=== PATIENT | female | born 1970 | race Two or more races ===

== ENCOUNTER 2024-04-24 14:53 | Inpatient (IN) | payer BC, OTHER ==
[~2024-04-24] VITALS: Ht 160 cm; Wt 120.9 kg
[2024-04-24 15:24] VITALS: BP 147/100; PULSE 78; RESP 20; O2SAT 99
--- NOTE | 2024-04-24 15:35 | ED.PDOC ---
History of Present Illness HPI Comments 53 y/o F,Hx of hypothyroidism and 3xC-sections and a FMHx of COPD, DM, and hypoglycemia, presents from [facility] facility with c/o abdominal and back pain and nausea, today. Patient endorses on Hx of similar symptoms following self-purchased semaglutide injections she has been taking for the past 7x weeks, with most recent onset taking place within the last 2x days, following recent increasing in medication dosage from 10 units to 20 units. She comments on pain being a 7/10 in severity and localized in her epigastric region prior to then radiating, directly, towards her mid-back. She also comments on having 1x isolated episode of loose stools and chills that resoled on its own during initial onset of symptoms. Patient reports no further relevant or pertinent Hx, such as recent injuries, travel, or sick contact. She denies having any vomiting, diarrhea, constipation, urinary symptoms, fever, or other associated symptoms or modifiers at this time. Time Seen by MD: 15:20 Reviewed Notes: Nurses Notes, Medications, Allergies Allergies: Coded Allergies: Nitrofurantoin (Verified Allergy, Unknown, 04/24/24) Penicillins (Verified Allergy, Unknown, 04/24/24) Information Source: Patient Mode of Arrival: Ambulatory Severity: Moderate Timing: Days Duration: Since onset Prehospital treatment: None Past Medical History PAST MEDICAL HISTORY: Thyroid (hypothyroidism ) Past Medical History (Other): morbid obesity Surgical History: (3x), Tonsillectomy Surgical History (Other): right foot foreign body removal WATCH PARTS GRINDER History: Denies all WATCH PARTS GRINDER Hx Family History Family History: Reviewed,noncontributory to illness, No family hx of Cancer, No family hx of Heart alisia, No family hx of HTN, No family hx ofKidney alisia, No family hx of Liver alisia, No family hx of Stroke, Family hx of DM, Family hx of lung alisia (COPD) Family History (Other): hypoglycemia Social History Smoker: Non-Smoker Alcohol: Occasionally Drugs: Denies Drug Use Lives In: Home Constitutional: denies: chills, diaphoresis, fatigue, fever, malaise, sweats, weakness, others EENTM: denies: blurred vision, double vision, ear bleeding, ear discharge, ear drainage, ear pain, ear ringing, eye pain, eye redness, hearing loss, mouth pain, mouth swelling, nasal discharge, nose bleeding, nose congestion, nose pain, photophobia, tearing, throat pain, throat swelling, voice changes, others Respiratory: denies: cough, hemoptysis, orthopnea, SOB at rest, shortness of breath, SOB with excertion, stridor, wheezing, others Cardiovascular: denies: chest pain, dizzy spells, diaphoresis, Dyspnea on exertion, edema, irregular heart beat, left arm pain, lightheadedness, palpitations, PND, syncope, others Gastrointestinal: reports: abdominal pain, nausea; denies: abdomen distended, blood streaked bowels, constipated, diarrhea, dysphagia, difficulty swallowing, hematemesis, melena, poor appetite, poor fluid intake, rectal bleeding, rectal pain, vomiting, others Genitourinary: denies: abnormal vagina bleeding, burning, dyspareunia, dysuria, flank pain, frequency, hematuria, incontinence, pain, , vagina discharge, urgency, others Neurological: denies: dizziness, fainting, headache, left sided numbness, left sided weakness, numbness, paresthesia, pre-existing deficit, right sided numbness, right sided weakness, seizure, speech problems, tingling, tremors, weakness, others Musculoskeletal: reports: back pain; denies: gout, joint pain, joint swelling, muscle pain, muscle stiffness, neck pain, others Integumetry: denies: bruises, change in color, change in hair/nails, dryness, laceration, lesions, lumps, rash, wounds, others Allergic/Immunocompromised: denies: Difficulty Healing, Frequent Infections, Hives, Itching, others Hematologic/Lymphatic: denies: anemia, blood clots, easy bleeding, easy bruising, swollen glands, others Endocrine: denies: excessive hunger, excessive sweating, excessive thirst, excessive urination, flushing, intolerance to cold, intolerance to heat, unexplained weight gain, unexplained weight loss, others Psychiatric: denies: anxiety, bipolar disorder, depression, hopeless, panic disorder, schizophrenia, sleepless, suicidal, others All Other Systems: Reviewed and Negative Physical Exam General Appearance: Moderate Distress HEENT: Normal ENT Inspection, Pharynx Normal, TMs Normal Neck: Full Range of Motion, Non-Tender, Normal, Normal Inspection Respiratory: Chest Non-Tender, Lungs Clear, No Accessory Muscle Use, No Respi ratory Distress, Normal Breath Sounds Cardiovascular: No Edema, No JVD, No Murmur, No Gallop, Normal Peripheral Pulses, Regular Rate/Rhythm Breast Exam: Deferred Gastrointestinal: Epigastric, No Organomegaly, No Pulsatile Mass, Normal Bowel Sounds, Soft, Tenderness Genitalia: Deferred Pelvic: Deferred Rectal: Deferred Extremities: No calf tenderness, Normal capillary refill, Normal inspection, Normal range of motion, Non-tender, No pedal edema Musculoskeletal : Apperance: Normal Neurologic: Alert, property management intern II-XII nml as Tested, No Motor Deficits, Normal Affect, Normal Mood, No Sensory Deficits Cerebellar Function: Normal Reflexes: Normal Skin: Dry, Normal Color, Warm Lymphatic: No Adenopathy Was a procedure done? Was a procedure done?: No Differential Dx Considerations may include: adverse medication effect, gastritis, gastroenteritis, GERD, PUD, spoiled food X-Ray, Labs, Meds, VS Vital Signs Date Time Temp Pulse Resp B/P (MAP) Pulse Ox O2 Delivery O2 Flow Rate FiO2 04/24/24 15:24 97.0 78 20 147/100 (116) 99 Lab Test 04/24/24 16:49 Range/Units White Blood Count 9.2 4.4-10.8 10^3/uL Red Blood Count 5.58 H 4.0-5.20 10^6/uL Hemoglobin 16.5 H 12.2-16.2 g/dL Hematocrit 49.7 H 36.0-46.0 % Mean Corpuscular Volume 89.1 80.0-100.0 fL Mean Corpuscular Hemoglobin 29.6 28.0-32.0 pg Mean Corpuscular Hemoglobin Concent 33.3 32.0-36.0 g/dL Red Cell Distribution Width 13.8 11.8-14.3 % Platelet Count 202 140-450 10^3/uL Mean Platelet Volume 8.3 6.9-10.8 fL Neutrophils (%) (Auto) 52.3 37.0-80.0 % Lymphocytes (%) (Auto) 37.8 10.0-50.0 % Monocytes (%) (Auto) 7.2 0.0-12.0 % Eosinophils (%) (Auto) 2.3 0.0-7.0 % Basophils (%) (Auto) 0.4 0.0-2.0 % Neutrophils # (Auto) 4.8 1.6-8.6 10 ^3/uL Lymphocytes # (Auto) 3.5 0.4-5.4 10 ^3/uL Monocytes # (Auto) 0.7 0-1.3 10 ^3/uL Eosinophils # (Auto) 0.2 0-0.8 10 ^3/uL Basophils # (Auto) 0 0-0.2 10 ^3/uL Nucleated Red Blood Cells 0.1 % Sodium Level 141 136-145 mmol/L Potassium Level 4.1 3.5-5.1 mmol/L Chloride Level 107 98-107 mmol/L Carbon Dioxide Level 26 20-31 mmol/L Anion Gap 8 5-15 Blood Urea Nitrogen 6 L 9-23 mg/dL Creatinine 0.95 0.550-1.02 mg/dL Glomerular Filtration Rate Calc 71 >90 mL/min BUN/Creatinine Ratio 6.3 L 10.0-20.0 Serum Glucose 97 74-106 mg/dL Calcium Level 10.2 8.7-10.4 mg/dL Total Bilirubin 0.7 0.2-1.0 mg/dL Aspartate Amino Transferase (AST) 24 13-40 U/L Alanine Aminotransferase (ALT) 16 7-40 U/L Alkaline Phosphatase 86 46-116 U/L Total Protein 7.6 5.7-8.2 g/dL Albumin 4.7 3.2-4.8 g/dL Lipase 74 H 12-53 U/L The gallbladder ultrasound shows: Mild hepatomegaly with hepatic steatosis. Cholelithiasis within a contracted gallbladder without evidence of acute yuriy cystitis. Nonspecific gallbladder wall thickening which may be due to inadequate distention. IV Hep-Lock is being established The patient was given Protonix 40 mg IV push The patient was given Zofran 4 mg IV push for the nausea At this time, the patient was being admitted to the hospitalist Images Reviewed?: Images reviewed and evaluated by me Time of 1ST Reevaluation: 15:50 Reevaluation 1ST: Unchanged Patient Education/Counseling: Diagnosis, Treatment, Prognosis Family Education/Counseling: No Family Present Departure 1 Departure Time of Disposition: 16:18 Impression: Primary Impression: Intractable abdominal pain Additional Impression: Cholelithiasis Qualified Codes: K80.20 - Calculus of gallbladder without cholecystitis without obstruction Disposition: 09 ADMITTED INPATIENT Admit to: Med Surg Condition: Fair Critical Care Note Critical Care Time?: No Stability Stability form required: Yes Unstable for transfer: ED Physician Assesment (Clinical assesment) Heart Score Heart Score: Heart Score Response (Comments) Value History N/A 0 EKG N/A 0 Age N/A 0 Risk Factors N/A 0 Troponin N/A 0 Total 0 I personally scribed for DAVID SNOW MD ([email or web address]) on 04/24/24 at 15:35. Electronically submitted by Jw Bunch ([email or web address]). DAVID SNOW MD Apr 24, 2024 15:35
--- NOTE | 2024-04-24 16:05 | DVH ---
Procedure: US GALLBLADDER Study Date and Requested Time: 04/24/2024 03:32 PM History: pain Comparison: None Technique: Multiple high resolution pichardo-scale images obtained of the right upper quadrant of the abd omen with color Doppler for evaluation of blood flow and vascularity as indicated. Findings: Liver measures 17.4 cm in length, with increased echotexture and normal contours. No evidence of foca l hepatic lesions, intrahepatic or extrahepatic ductal dilatation. Common bile duct measures 0.4 cm i n diameter. Gallstones within the contracted gallbladder. No evidence of pericholecystic free fluid. Nonspecifi c gallbladder wall thickening 0.7 cm which is most likely from inadequate distension. Negative sonogr aphic Cosby's sign. Pancreas is unremarkable. Right kidney measures 10 cm in length, with normal contours, echotexture, and cortical thickness. No evidence of hydronephrosis, calculi, cystic or solid renal lesions. Partially visualized inferior vena cava unremarkable. Impression: Mild hepatomegaly with hepatic steatosis. Cholelithiasis within a contracted gallbladder without evidence of acute yuriy cystitis. Nonspecific gallbladder wall thickening which may be due to inadequate distention.
[2024-04-24 17:35] LABS: Basophils # (auto) 0 10 ^3/uL (0-0.2); Basophils % (auto) 0.4 % (0.0-2.0); Eosinophils # (auto) 0.2 10 ^3/uL (0-0.8); Eosinophils % (auto) 2.3 % (0.0-7.0); Hematocrit 49.7 % (36.0-46.0); Hemoglobin 16.5 g/dL (12.2-16.2); Lymphocytes # (auto) 3.5 10 ^3/uL (0.4-5.4); Lymphocytes % (auto) 37.8 % (10.0-50.0); Mean Corpuscular Hemoglobin 29.6 pg (28.0-32.0); Mean Corpuscular Hgb Conc. 33.3 g/dL (32.0-36.0); Mean Corpuscular Volume 89.1 fL (80.0-100.0); Monocytes # (auto) 0.7 10 ^3/uL (0-1.3); Monocytes % (auto) 7.2 % (0.0-12.0); Neutrophils # (auto) 4.8 10 ^3/uL (1.6-8.6); Neutrophils % (auto) 52.3 % (37.0-80.0); Nucleated Red Blood Cells % 0.1 %; Platelet Count (auto) 202 10^3/uL (140-450); Red Blood Cells 5.58 10^6/uL (4.0-5.20); Red Cell Distribution Width 13.8 % (11.8-14.3); White Blood Cell 9.2 10^3/uL (4.4-10.8)
[2024-04-24 17:46] LABS: Alanine Aminotransferase 16 U/L (7-40); Albumin 4.7 g/dL (3.2-4.8); Alkaline Phosphatase 86 U/L (46-116); Anion Gap 8 (5-15); Aspartate Aminotransferase 24 U/L (13-40); BUN/Creatinine Ratio 6.3 (10.0-20.0); Calcium 10.2 mg/dL (8.7-10.4); Carbon Dioxide 26 mmol/L (20-31); Glucose 97 mg/dL (74-106); Potassium 4.1 mmol/L (3.5-5.1); Sodium 141 mmol/L (136-145)
[2024-04-24 17:47] LABS: Bilirubin, Total 0.7 mg/dL (0.2-1.0); Total Protein 7.6 g/dL (5.7-8.2)
[2024-04-24 17:48] LABS: Blood Urea Nitrogen 6 mg/dL (9-23); Chloride 107 mmol/L (98-107); Lipase 74 U/L (12-53)
[2024-04-24 21:32] LABS: Urine Bacteria MOD /hpf (None Seen); Urine Blood Negative /uL (Negative); Urine Clarity Clear (Clear); Urine Color Light-Yellow (Yellow); Urine Mucus FEW (None Seen); Urine Protein, UAD Negative (Negative); Urine Specific Gravity 1.015 (1.001-1.035); Urine Urobilinogen Normal (Negative); Urine WBC 1 /hpf (0 - 5)
[2024-04-24] MEDS ORDERED: SODIUM CHLORIDE 0.9% 1,000 ML IV SCH (23:00)
--- NOTE | 2024-04-24 23:03 | DVHHPRES ---
History of Present Illness Resident Creating Document: BELLA MESSINA RESIDENT History of Present Illness This is a 53-year-old female with past medical history of hypothyroidism presented to the ED with a chief complaint of intermittent epigastric pain and nausea for last 1 day prior to this admission. Patient states that she started taking semaglutide injection from March 03 and after that she started experiencing intermittent epigastric pain, which was burning in nature 8/10, radiated to the back and associated with nausea. The patient also mentioned that for last 10 days the pain became continuous and last night after dinner she felt excruciating burning pain in the epigastric region, which was 10/10 , and associated with shortness of breath and nausea which prompted her this visit. The patient denies chest pain, dizziness, diaphoresis, productive cough, dysuria, hematuria, vomiting, sick contact or any change in the bowel movement. Past Medical History Hypothyroidism Past Surgical History 3 and tonsillectomy Family History Family history significant for COPD and type 2 diabetes mellitus. Past Social History Lives with family Nonsmoker, nonalcoholic and never tried any drugs Review of Systems Constitutional: No: Fever, Chills, Sweats, Weakness, Malaise, Other Eyes: No: Pain, Vision change, Conjunctivae inflammation, Eyelid inflammation, Other, Redness ENT: No: Ear pain, Ear discharge, Nose pain, Nose discharge, Nose congestion, Mouth pain, Mouth swelling, Throat pain, Throat swelling, Other Respiratory: No: Cough, Dry, Shortness of breath, SOB with excertion, Wheezing, Hemoptysis, Pleuritic Pain, Sputum, Wheezing, Other Gastrointestinal: Nausea, Abdominal Pain; No: Vomiting, Diarrhea, Constipation, Melena, Hematochezia, Other Genitourinary: No Dysuria, No Frequency, No Incontinence, No Hematuria, No Retention, No Other Musculoskeletal: No: other, neck pain, shoulder pain, arm pain, back pain, hand pain, leg pain, foot pain Skin: No: Rash, Lesions, Jaundice, Bruising, Other Neurological: No: Weakness, Numbness, Incoordination, Change in speech, Confusion, Seizures, Other Allergies: Coded Allergies: Nitrofurantoin (Verified Allergy, Unknown, 04/24/24) Penicillins (Verified Allergy, Unknown, 04/24/24) Exam Vital Signs Vital Signs Date Time Temp Pulse Resp B/P (MAP) Pulse Ox O2 Delivery O2 Flow Rate FiO2 04/24/24 15:24 97.0 78 20 147/100 (116) 99 Exam Physical examination: General Appearance: Alert, Oriented X3, Cooperative, No acute distress HEENT: Atraumatic, PERRLA, EOMI, Mucous membrane moist/pink Respiratory: Clear to auscultation, Normal air movement Cardiovascular: Regular rate, Normal S1, Normal S2, No murmurs, no chest wall tenderness Abdominal: Normal bowel sounds, Soft, mild tenderness in the epigastric region, jimenez's sign (-ve), No hepatospenomegaly, No masses Extremities: No clubbing, No cyanosis, No edema, Normal pulses, No tenderness/swelling Skin: No rashes, No breakdown, No significant lesion Neuro: Normal gait, Normal speech, Strength at 5/5 X4 ext, Normal tone, Sensati on intact, grossly intact cranial nerves. Psych/Mental Status: Mental status NL, Mood NL Labs/Xrays Labs Test 04/24/24 21:04 04/24/24 16:49 Range/Units Urine Color Light-yellow Yellow Urine Clarity Clear Clear Urine pH 5.0 5.0-9.0 Urine Specific [place] 1.015 1.001-1.035 Urine Protein Negative Negative Urine Ketones Negative Negative Urine Blood Negative Negative /uL Urine Nitrite Negative Negative Urine Bilirubin Negative Negative Urine Urobilinogen Normal Negative mg/dL Urine Leukocyte Esterase Negative Negative /uL Urine RBC 1 0 - 4 /hpf Urine WBC 1 0 - 5 /hpf Urine Squamous Epithelial Cells Few <5 /hpf Urine Bacteria Mod H None Seen /hpf Urine Mucus Few None Seen Urine Glucose Normal Normal mg/dL White Blood Count 9.2 4.4-10.8 10^3/uL Red Blood Count 5.58 H 4.0-5.20 10^6/uL Hemoglobin 16.5 H 12.2-16.2 g/dL Hematocrit 49.7 H 36.0-46.0 % Mean Corpuscular Volume 89.1 80.0-100.0 fL Mean Corpuscular Hemoglobin 29.6 28.0-32.0 pg Mean Corpuscular Hemoglobin Concent 33.3 32.0-36.0 g/dL Red Cell Distribution Width 13.8 11.8-14.3 % Platelet Count 202 140-450 10^3/uL Mean Platelet Volume 8.3 6.9-10.8 fL Neutrophils (%) (Auto) 52.3 37.0-80.0 % Lymphocytes (%) (Auto) 37.8 10.0-50.0 % Monocytes (%) (Auto) 7.2 0.0-12.0 % Eosinophils (%) (Auto) 2.3 0.0-7.0 % Basophils (%) (Auto) 0.4 0.0-2.0 % Neutrophils # (Auto) 4.8 1.6-8.6 10 ^3/uL Lymphocytes # (Auto) 3.5 0.4-5.4 10 ^3/uL Monocytes # (Auto) 0.7 0-1.3 10 ^3/uL Eosinophils # (Auto) 0.2 0-0.8 10 ^3/uL Basophils # (Auto) 0 0-0.2 10 ^3/uL Nucleated Red Blood Cells 0.1 % Sodium Level 141 136-145 mmol/L Potassium Level 4.1 3.5-5.1 mmol/L Chloride Level 107 98-107 mmol/L Carbon Dioxide Level 26 20-31 mmol/L Anion Gap 8 5-15 Blood Urea Nitrogen 6 L 9-23 mg/dL Creatinine 0.95 0.550-1.02 mg/dL Glomerular Filtration Rate Calc 71 >90 mL/min BUN/Creatinine Ratio 6.3 L 10.0-20.0 Serum Glucose 97 74-106 mg/dL Calcium Level 10.2 8.7-10.4 mg/dL Total Bilirubin 0.7 0.2-1.0 mg/dL Aspartate Amino Transferase (AST) 24 13-40 U/L Alanine Aminotransferase (ALT) 16 7-40 U/L Alkaline Phosphatase 86 46-116 U/L Total Protein 7.6 5.7-8.2 g/dL Albumin 4.7 3.2-4.8 g/dL Lipase 74 H 12-53 U/L Assessment/Plan Assessment/Plan Assessment and plan: # Intractable upper abdominal pain, rule out cholecystitis/ pancreatitis - CBC and CMP are unremarkable - Mildly elevated lipase - U/S of the GB cholelithiasis without evidence of acute cholecystitis - IV normal saline at 100 mL/hour - IV Protonix 40 mg daily - IV ondansetron 4 mg Q 8 p.r.n. # DVT prophylaxis - Not recommended as patient is mobile Goal of care discussed with the patient for more than 17 minutes full code Plan discussed with Dr. Hawley Plan discussed with: Patient, Other My Orders Orders - BELLA MESSINA Procedure Category Date Status Time Admit ADMIT 04/24/24 Transmitted 22:54 NS PHA 04/24/24 Transmitted 23:00 Ondansetron Hcl PHA 04/25/24 Transmitted (Zofran) 06:00 Drug Screen LAB 04/24/24 Transmitted 22:58 Thyroid Stimulating LAB 04/24/24 Transmitted Hormone 22:58 Hemoglobin A1c LAB 04/24/24 Transmitted 22:58 Date of Service: Apr 24, 2024 Billing Provider: FERMIN HAWLEY MD Common Visit Codes: [id number] INP/OBS CARE (HIGH) BELLA MESSINA RESIDENT Apr 24, 2024 23:03 FERMIN HAWLEY MD Apr 25, 2024 08:54
[2024-04-24 23:35] LABS: Opiate Scree,Urine Neg (NEGATIVE)
[2024-04-24 23:44] LABS: Amphetamine Screen, Urine Neg (NEGATIVE); Barbiturate Scree,Urine Neg (NEGATIVE); Benzodiazephine Screen, Urine Neg (NEGATIVE); Cannabinoid Screen, Urine Neg (NEGATIVE); Cocaine Screen, Urine Neg (NEGATIVE); Phencyclidine Screen, Urine Neg (NEGATIVE)
[2024-04-25] MEDS ORDERED: ONDANSETRON HCL 4 MG/2 ML VIAL IV SCH (06:00)
[2024-04-25] MEDS ORDERED: PANTOPRAZOLE 40 MG/10 ML VIAL INJ IV SCH (10:00)
[2024-04-25] MEDS ORDERED: ZOFR4T PO (16:44)
[2024-04-25] MEDS ORDERED: CALC600C PO (16:44)
== END 2024-04-25 01:30 | disposition left against medical advice (07) | DRG 444 ==
LOC: ER 14:53 → OVERFLOW 22:54
PROVIDERS: ATTEND Emergency Medicine
DX: K80.20 Calculus of gallbladder without cholecystitis without obstruction (principal); K85.90 Acute pancreatitis without necrosis or infection, unspecified; E03.9 Hypothyroidism, unspecified; Z82.5 Family history of asthma and other chronic lower respiratory diseases; Z83.3 Family history of diabetes mellitus; Z88.0 Allergy status to penicillin; Z88.8 Allergy status to other drugs, medicaments and biological substances
CPT/HCPCS: 36415; 76705; 80053; 80307; 81001; 83036; 83690; 84443; 85025; G0378

== ENCOUNTER 2024-04-25 14:14 | Emergency (ER) | payer BC ==
[~2024-04-25] VITALS: Ht 160 cm; Wt 120.0 kg
[2024-04-25] MEDS: MAALOX PLUS or MAALOX 30 ML PO ONE (15:36)
[2024-04-25] MEDS: ONDANSETRON ODT 4 MG TAB PO ONE (15:36)
[2024-04-25] MEDS: LIDOCAINE VISCOUS 2% 15ML UD PO ONE (15:36)
[2024-04-25] MEDS: DONNATAL 5ml ORAL Elix (BELLADONNA ALK-PHENOBARB) PO ONE (15:37)
--- NOTE | 2024-04-25 15:41 | ED.PDOC ---
GI ASSESSMENT HPI Comments 53 y.o female presents to the ED for a chief complaint of upper abdominal pain that started 11 days ago. Patient recently started Ozempic on 03/03/24, had intermittent abdominal aches that self resolved but her last shot on 04/14/24 is when pain did not go away. Patient described pain as sharp, non radiating, and tender on palpation. No nausea, vomiting, diarrhea, fever or chills reported. Chief Complaint: Abdominal Pain Time Seen by MD: 15:02 Primary Care Provider: ANUJA Banegas Notes: Nurses Notes, Medications, Allergies Allergies: Coded Allergies: Nitrofurantoin (Verified Allergy, Unknown, 04/24/24) Penicillins (Verified Allergy, Unknown, 04/24/24) Information Source: Patient Mode of Arrival: Ambulatory Timing: Days (11) Duration: Since onset Quality: Aching Vomitus: None Stool: Normal Severity: Moderate Recent: None Recent Hx of: None Pain Location: Diffuse Modifying Factors: Nothing Associated sign and symptoms: Abdominal Pain Past Medical History PAST MEDICAL HISTORY: Thyroid Surgical History: , Tonsillectomy DIRECTOR MEDICAL SAFETY History: Denies all DIRECTOR MEDICAL SAFETY Hx Family History Family History: Reviewed,noncontributory to illness, No family hx of Cancer, No family hx of Heart alisia, No family hx of HTN, No family hx ofKidney alisia, No family hx of Liver alisia, No family hx of Stroke, Family hx of DM, Family hx of lung alisia Family History (Other): hypoglycemia Social History Smoker: Non-Smoker Alcohol: Occasionally Drugs: Denies Drug Use Lives In: Home Constitutional: denies: chills, diaphoresis, fatigue, fever, malaise, sweats, weakness, others EENTM: denies: blurred vision, double vision, ear bleeding, ear discharge, ear drainage, ear pain, ear ringing, eye pain, eye redness, hearing loss, mouth pain, mouth swelling, nasal discharge, nose bleeding, nose congestion, nose pain, photophobia, tearing, throat pain, throat swelling, voice changes, others Respiratory: denies: cough, hemoptysis, orthopnea, SOB at rest, shortness of breath, SOB with excertion, stridor, wheezing, others Cardiovascular: denies: chest pain, dizzy spells, diaphoresis, Dyspnea on exertion, edema, irregular heart beat, left arm pain, lightheadedness, palpitations, PND, syncope, others Gastrointestinal: reports: abdominal pain, nausea; denies: abdomen distended, blood streaked bowels, constipated, diarrhea, dysphagia, difficulty swallowing, hematemesis, melena, poor appetite, poor fluid intake, rectal bleeding, rectal pain, vomiting, others Genitourinary: denies: abnormal vagina bleeding, burning, dyspareunia, dysuria, flank pain, frequency, hematuria, incontinence, pain, , vagina dischar ge, urgency, others Neurological: denies: dizziness, fainting, headache, left sided numbness, left sided weakness, numbness, paresthesia, pre-existing deficit, right sided numbness, right sided weakness, seizure, speech problems, tingling, tremors, weakness, others Musculoskeletal: denies: back pain, gout, joint pain, joint swelling, muscle pain, muscle stiffness, neck pain, others Integumetry: denies: bruises, change in color, change in hair/nails, dryness, laceration, lesions, lumps, rash, wounds, others Allergic/Immunocompromised: denies: Difficulty Healing, Frequent Infections, Hives, Itching, others Hematologic/Lymphatic: denies: anemia, blood clots, easy bleeding, easy bruising, swollen glands, others Endocrine: denies: excessive hunger, excessive sweating, excessive thirst, excessive urination, flushing, intolerance to cold, intolerance to heat, unexplained weight gain, unexplained weight loss, others Psychiatric: denies: anxiety, bipolar disorder, depression, hopeless, panic disorder, schizophrenia, sleepless, suicidal, others All Other Systems: Reviewed and Negative Physical Exam General Appearance: No Apparent Distress, Normal HEENT: Normal ENT Inspection, Pharynx Normal, TMs Normal Neck: Full Range of Motion, Non-Tender, Normal, Normal Inspection Respiratory: Chest Non-Tender, Lungs Clear, No Accessory Muscle Use, No Respiratory Distress, Normal Breath Sounds Cardiovascular: No Edema, No JVD, No Murmur, No Gallop, Normal Peripheral Pulses, Regular Rate/Rhythm Breast Exam: Deferred Gastrointestinal: LUQ, RUQ, Tenderness Genitalia: Deferred Pelvic: Deferred Rectal: Deferred Extremities: No calf tenderness, Normal capillary refill, Normal inspection, Normal range of motion, Non-tender, No pedal edema Musculoskeletal : Apperance: Normal Neurologic: Alert, sounding device operator II-XII nml as Tested, No Motor Deficits, Normal Affect, Normal Mood, No Sensory Deficits Cerebellar Function: Normal Reflexes: Normal Skin: Dry, Normal Color, Warm Lymphatic: No Adenopathy Was a procedure done? Was a procedure done?: No GI differential Dx Differential Diagnosis: Constipation, Esophagitis, Gastroenteritis, Dehydration, Electrolyte Imbalance, Viral X-Ray, Labs, Meds, VS Vital Signs Date Time Temp Pulse Resp B/P (MAP) Pulse Ox O2 Delivery O2 Flow Rate FiO2 04/25/24 14:33 98.2 93 18 147/75 (99) 97 Current Medications Medications (Trade) Dose Ordered Sig/Ashley Route Start Time Stop Time Status Last Admin Belladonna Alkaloids/ Phenobarbital ( Elixir) 10 ml ONCE ONCE PO 04/25/24 15:15 04/25/24 15:16 DC 04/25/24 15:37 Al Hydrox/Mg Hydrox/Simethicone (Maalox Plus) 30 ml ONCE ONCE PO 04/25/24 15:15 04/25/24 15:16 DC 04/25/24 15:36 Lidocaine HCl (Xylocaine 2% Viscous) 15 ml ONCE ONCE PO 04/25/24 15:15 04/25/24 15:16 DC 04/25/24 15:36 Ondansetron HCl (Zofran Po) 4 mg ONCE ONCE PO 04/25/24 15:15 04/25/24 15:16 DC 04/25/24 15:36 X-Ray, Labs, Meds, VS Comment This 53-year-old female presents emergency room secondary to abdominal discomfort after starting Ozempic. She has associated nausea. She was worked up yesterday with a benign labs and ultrasound. Here, she was given Zofran follow up with GI continence near complete resolution of her symptoms. Secondary to her history, physical exam, responds to medication and normal labs actually, discharge her with a prescription of Zofran. She was told that she may have to reduce her dose of Ozempic or slow the increased. She states her understanding. She was to follow up with the PCP next 1- 2 days return to the ER for any new/worrisome/worsening symptoms. Time of 1ST Reevaluation: 15:37 Reevaluation 1ST: Unchanged Time of 2ND Reevaluation: 16:45 Reevaluation 2ND: Resolved Patient Education/Counseling: Diagnosis, Treatment, Prognosis Family Education/Counseling: No Family Present Additional Information I reviewed the following notes from patient's past medical encounters: 04/24/24- intractable abdominal pain The following tests were ordered, and results were reviewed by me: (Labs, XY, EKG): PHA Additional Information was gathered from interviewing the following independent historians: (Family, Other Providers, EMT): none I reviewed and agreed with the following test results read by other providers: (X-Ray, CT, US): None I discussed treatment and results with medical personnel and: (Consultants, Family): None Departure 1 Departure Time of Disposition: 16:43 Impression: Primary Impression: Nausea Additional Impressions: Upset stomach Dyspepsia Disposition: ADMITTED INPATIENT Condition: Good e-Prescriptions Calcium Carbonate (Antacid) (Maalox) 600 Mg Chw 600 MG PO BID PRN, #30 TAB.CHEW Prov: RICARDO LEE MD 04/25/24 Ondansetron Odt 4MG Tab (ZOFRAN PO) 4 Mg Tb 4 MG PO QIDPRN PRN, #20 TAB ODT TAB-DISSOLVE IN MOUTH, THEN SWALLOW Prov: RICARDO LEE MD 04/25/24 Discharged With: Self Critical Care Note Critical Care Time?: No Stability Stability form required: No I personally scribed for RICARDO LEE MD ([email or web address]) on 04/25/24 at 15:41. Electronically submitted by Anay Andino ([facility]). RICARDO LEE MD Apr 25, 2024 15:41
[2024-04-25] MEDS ORDERED: ZOFR4T PO (16:44)
[2024-04-25] MEDS ORDERED: CALC600C PO (16:44)
[2024-04-25 17:37] VITALS: BP 141/89; PULSE 70; RESP 16; TEMP 98.2; O2SAT 100
== END 2024-04-25 17:41 | disposition home or self-care (01) ==
LOC: ER 14:14
DX: K30 Functional dyspepsia (principal); R11.0 Nausea; E03.9 Hypothyroidism, unspecified; Z98.890 Other specified postprocedural states; Z90.89 Acquired absence of other organs; Z88.0 Allergy status to penicillin; Z88.1 Allergy status to other antibiotic agents
CPT/HCPCS: 99284; Q0162

== ENCOUNTER 2024-04-29 10:59 | Inpatient (IN) | payer BC ==
[~2024-04-29] VITALS: Ht 160 cm; Wt 120.1 kg
[~2024-04-29 10:59] MED LIST: CALC600C PO; ZOFR4T PO
--- NOTE | 2024-04-29 12:00 | ED.PDOC ---
GI ASSESSMENT HPI Comments 53y F who presents to the ED for chief complaint of abdominal pain. Pt states she has been having epigastric abdominal pain radiating to the back for the past 1 week. Pt states she has increased pain after eating but denies any associated relieving factors. Pt states the pain increased over last night at approx 7 PM and has been constant since. Pt states she still has gallbladder and has not yet been able to see PCP to be able to get appt for gallbladder evaluation but has noted history of gallstones. Pt otherwise denies any other symptoms at this time. Chief Complaint: Abdominal Pain Time Seen by MD: 11:58 Primary Care Provider: Wilmer Allergies: Coded Allergies: Nitrofurantoin (Verified Allergy, Unknown, 04/24/24) Penicillins (Verified Allergy, Unknown, 04/24/24) Home Meds Active Scripts Calcium Carbonate (Antacid) (Maalox) 600 Mg Chw, 600 MG PO BID PRN, #30 TAB.CHEW Prov:RICARDO LEE MD 04/25/24 Ondansetron Odt 4MG Tab (ZOFRAN PO) 4 Mg Tb, 4 MG PO QIDPRN PRN, #20 TAB ODT TAB-DISSOLVE IN MOUTH, THEN SWALLOW Prov:RICARDO LEE MD 04/25/24 Information Source: Patient Mode of Arrival: Ambulatory Brought in by: self Past Medical History PAST MEDICAL HISTORY: Thyroid Surgical History: , Tonsillectomy [facility] History: Denies all [facility] Hx Family History Family History: Reviewed,noncontributory to illness, No family hx of Cancer, No family hx of Heart alisia, No family hx of HTN, No family hx ofKidney alisia, No family hx of Liver alisia, No family hx of Stroke, Family hx of DM, Family hx of lung alisia Family History (Other): hypoglycemia Social History Smoker: Non-Smoker Alcohol: Occasionally Drugs: Denies Drug Use Lives In: Home Constitutional: denies: chills, diaphoresis, fatigue, fever, malaise, sweats, weakness, others EENTM: denies: blurred vision, double vision, ear bleeding, ear discharge, ear drainage, ear pain, ear ringing, eye pain, eye redness, hearing loss, mouth pain, mouth swelling, nasal discharge, nose bleeding, nose congestion, nose pain, photophobia, tearing, throat pain, throat swelling, voice changes, others Respiratory: denies: cough, hemoptysis, orthopnea, SOB at rest, shortness of breath, SOB with excertion, stridor, wheezing, others Cardiovascular: denies: chest pain, dizzy spells, diaphoresis, Dyspnea on exertion, edema, irregular heart beat, left arm pain, lightheadedness, palpitations, PND, syncope, others Gastrointestinal: reports: abdominal pain, nausea, vomiting; denies: abdomen distended, blood streaked bowels, constipated, diarrhea, dysphagia, difficulty swallowing, hematemesis, melena, poor appetite, poor fluid intake, rectal bleeding, rectal pain, others Genitourinary: denies: abnormal vagina bleeding, burning, dyspareunia, dysuria, flank pain, frequency, hematuria, incontinence, pain, , vagina discharge, urgency, others Neurological: denies: dizziness, fainting, headache, left sided numbness, left sided weakness, numbness, paresthesia, pre-existing deficit, right sided numbness, right sided weakness, seizure, speech problems, tingling, tremors, weakness, others Musculoskeletal: denies: back pain, gout, joint pain, joint swelling, muscle pain, muscle stiffness, neck pain, others Integumetry: denies: bruises, change in color, change in hair/nails, dryness, laceration, lesions, lumps, rash, wounds, others Allergic/Immunocompromised: denies: Difficulty Healing, Frequent Infections, Hives, Itching, others Hematologic/Lymphatic: denies: anemia, blood clots, easy bleeding, easy bruising, swollen glands, others Endocrine: denies: excessive hunger, excessive sweating, excessive thirst, excessive urination, flushing, intolerance to cold, intolerance to heat, unexplained weight gain, unexplained weight loss, others Psychiatric: denies: anxiety, bipolar disorder, depression, hopeless, panic disorder, schizophrenia, sleepless, suicidal, others All Other Systems: Reviewed and Negative Physical Exam General Appearance: No Apparent Distress, Normal HEENT: Normal ENT Inspection, Pharynx Normal, TMs Normal Neck: Full Range of Motion, Non-Tender, Normal, Normal Inspection Respiratory: Chest Non-Tender, Lungs Clear, No Accessory Muscle Use, No Re spiratory Distress, Normal Breath Sounds Cardiovascular: No Edema, No JVD, No Murmur, No Gallop, Normal Peripheral Pulses, Regular Rate/Rhythm Breast Exam: Deferred Gastrointestinal: Epigastric, No Organomegaly, No Pulsatile Mass, Normal Bowel Sounds, Soft, Tenderness (epigastric pain) Genitalia: Deferred Pelvic: Deferred Rectal: Deferred Extremities: No calf tenderness, Normal capillary refill, Normal inspection, Normal range of motion, Non-tender, No pedal edema Musculoskeletal : Apperance: Normal Neurologic: Alert, pmo consultant II-XII nml as Tested, No Motor Deficits, Normal Affect, Normal Mood, No Sensory Deficits Cerebellar Function: Normal Reflexes: Normal Skin: Dry, Normal Color, Warm Lymphatic: No Adenopathy Was a procedure done? Was a procedure done?: No GI differential Dx Differential Diagnosis: Cholangitis, Cholecystitis, Constipation, Gastritis/PUD, Gastroenteritis, Hernia, Hepatitis, Inflammatory BD, Ischemic Bowel, Pancreatitis, UTI, Urolithiasis, Dehydration, Food Poisoning, Hypovolemia, Impaction, Mass Other Differential Diagnosis biliary colic, X-Ray, Labs, Meds, VS Vital Signs Date Time Temp Pulse Resp B/P (MAP) Pulse Ox O2 Delivery O2 Flow Rate FiO2 04/29/24 12:31 82 20 98 Room Air 04/29/24 12:31 98.0 82 20 146/90 (108) 98 98.0 04/29/24 11:06 97.7 88 18 175/109 (131) 96 Lab Test 04/29/24 11:17 Range/Units White Blood Count 11.7 H 4.4-10.8 10^3/uL Red Blood Count 5.46 H 4.0-5.20 10^6/uL Hemoglobin 15.9 12.2-16.2 g/dL Hematocrit 48.1 H 36.0-46.0 % Mean Corpuscular Volume 88.0 80.0-100.0 fL Mean Corpuscular Hemoglobin 29.1 28.0-32.0 pg Mean Corpuscular Hemoglobin Concent 33.1 32.0-36.0 g/dL Red Cell Distribution Width 14.0 11.8-14.3 % Platelet Count 206 140-450 10^3/uL Mean Platelet Volume 8.7 6.9-10.8 fL Neutrophils (%) (Auto) 76.8 37.0-80.0 % Lymphocytes (%) (Auto) 15.6 10.0-50.0 % Monocytes (%) (Auto) 6.8 0.0-12.0 % Eosinophils (%) (Auto) 0.6 0.0-7.0 % Basophils (%) (Auto) 0.2 0.0-2.0 % Neutrophils # (Auto) 8.9 H 1.6-8.6 10 ^3/uL Lymphocytes # (Auto) 1.8 0.4-5.4 10 ^3/uL Monocytes # (Auto) 0.8 0-1.3 10 ^3/uL Eosinophils # (Auto) 0.1 0-0.8 10 ^3/uL Basophils # (Auto) 0 0-0.2 10 ^3/uL Nucleated Red Blood Cells 0.0 % Sodium Level 139 136-145 mmol/L Potassium Level 3.5 3.5-5.1 mmol/L Chloride Level 104 98-107 mmol/L Carbon Dioxide Level 25 20-31 mmol/L Anion Gap 10 5-15 Blood Urea Nitrogen 9 9-23 mg/dL Creatinine 0.98 0.550-1.02 mg/dL Glomerular Filtration Rate Calc 69 >90 mL/min BUN/Creatinine Ratio 9.2 L 10.0-20.0 Serum Glucose 115 H 74-106 mg/dL Calcium Level 10.5 H 8.7-10.4 mg/dL Total Bilirubin 1.7 H 0.2-1.0 mg/dL Aspartate Amino Transferase (AST) 279 H 13-40 U/L Alanine Aminotransferase (ALT) 107 H 7-40 U/L Alkaline Phosphatase 106 46-116 U/L Total Protein 7.6 5.7-8.2 g/dL Albumin 4.6 3.2-4.8 g/dL Lipase > 3500 H 12-53 U/L Time of 1ST Reevaluation: 12:30 Reevaluation 1ST: Unchanged Time of 2ND Reevaluation: 13:45 Reevaluation 2ND: Improved Time of 3RD Reevaluation: 15:55 Reevaluation 3RD: Improved Patient Education/Counseling: Diagnosis, Treatment, Prognosis, Need For Follow Up Family Education/Counseling: No Family Present Additional Information I reviewed the following notes from patient's past medical encounters: last admission apr 24 The following tests were ordered, and results were reviewed by me: (Labs, XY, EKG): lipase, CBC, CMP Additional Information was gathered from interviewing the following independent historians: (Family, Other Providers, EMT): prior ED visits, I reviewed and agreed with the following test results read by other providers: (CT) I discussed treatment and results with medical personnel and: (Consultants, Family) pt has gallstone pancreatitis. [facility] was notified and inform us that they do not have beds and asked us to admit under obs. however, for the pt's needs, she will need to be admitted as a regular inpatient Departure 1 Departure Time of Disposition: 16:00 Impression: Primary Impression: Acute gallstone pancreatitis Disposition: 09 ADMITTED INPATIENT Admit to: Med Surg Condition: Stable Critical Care Note Critical Care Time?: Yes (55 min-critical care time only) Critical care comment: Due to concerns for patients condition deteriorating, the care required my highest level of attention and readiness to intervene. I assessed the patient, reviewed the medical records, ordered the appropriate tests and treatments, then reassessed for results and responsiveness. I communicated with medical personnel and consultants and formulated a plan of care. Total critical care time excludes any procedures Stability Stability form required: No Heart Score Heart Score: Heart Score Response (Comments) Value History N/A 0 EKG N/A 0 Age N/A 0 Risk Factors N/A 0 Troponin N/A 0 Total 0 I personally scribed for ABHAY STOVER MD ([facility]) on 04/29/24 at 12:00. Electronically submitted by Orville Stack ([email or web address]). ABHAY STOVER MD Apr 29, 2024 12:00
[2024-04-29 13:11] LABS: Basophils # (auto) 0 10 ^3/uL (0-0.2); Basophils % (auto) 0.2 % (0.0-2.0); Eosinophils # (auto) 0.1 10 ^3/uL (0-0.8); Eosinophils % (auto) 0.6 % (0.0-7.0); Hematocrit 48.1 % (36.0-46.0); Hemoglobin 15.9 g/dL (12.2-16.2); Lymphocytes # (auto) 1.8 10 ^3/uL (0.4-5.4); Lymphocytes % (auto) 15.6 % (10.0-50.0); Mean Corpuscular Hemoglobin 29.1 pg (28.0-32.0); Mean Corpuscular Hgb Conc. 33.1 g/dL (32.0-36.0); Monocytes # (auto) 0.8 10 ^3/uL (0-1.3); Monocytes % (auto) 6.8 % (0.0-12.0); Neutrophils # (auto) 8.9 10 ^3/uL (1.6-8.6); Neutrophils % (auto) 76.8 % (37.0-80.0); Platelet Count (auto) 206 10^3/uL (140-450); Red Blood Cells 5.46 10^6/uL (4.0-5.20); White Blood Cell 11.7 10^3/uL (4.4-10.8)
[2024-04-29 13:14] LABS: Albumin 4.6 g/dL (3.2-4.8); Alkaline Phosphatase 106 U/L (46-116); Anion Gap 10 (5-15); BUN/Creatinine Ratio 9.2 (10.0-20.0); Blood Urea Nitrogen 9 mg/dL (9-23); Carbon Dioxide 25 mmol/L (20-31); Chloride 104 mmol/L (98-107); Potassium 3.5 mmol/L (3.5-5.1); Sodium 139 mmol/L (136-145); Total Protein 7.6 g/dL (5.7-8.2)
[2024-04-29 13:16] LABS: Alanine Aminotransferase 107 U/L (7-40); Aspartate Aminotransferase 279 U/L (13-40); Bilirubin, Total 1.7 mg/dL (0.2-1.0); Calcium 10.5 mg/dL (8.7-10.4); Glucose 115 mg/dL (74-106); Lipase > 3500 U/L (12-53)
--- NOTE | 2024-04-29 13:51 | DVH ---
Exam: CT CT AB PEL WO CON-NO ORAL OR IV History: gallstone pancreatitis Comparison Study: None Technique: Multidetector spiral CT of the abdomen and pelvis was performed from lung bases to pubic symphysis. Imaging was performed without IV contrast. Axial, coronal and sagittal multiplanar reform ats were obtained from the axial data set by the technologist. Radiation dose : Abdomen/Pelvis: CTDIvol 27 mGy, DLP 1448 mGy*cm. Findings: Evaluation of solid organs is limited due to lack of intravenous contrast use. Lung Bases: No acute or significant lung base finding. Normal heart size. No pleural or pericardial effusion. Liver: The liver is normal in size. No focal lesions. Gallbladder and biliary Tree: Unremarkable Spleen: Unremarkable Pancreas: The pancreas is grossly normal in appearance. Adrenal Glands: Unremarkable Kidneys: Kidneys are grossly normal without calculi or hydronephrosis. Bladder: Grossly unremarkable for degree of distention. Bowel: The stomach is grossly normal in appearance. Small bowel and colon are normal in caliber and d istribution. The appendix is not visualized; however, no secondary findings of acute appendicitis id entified. Ascites: Absent Lymphadenopathy: No mesenteric, retroperitoneal or periportal lymphadenopathy. Abdominal wall and Mesentery: Ann mesentery with subcentimeter lymph nodes. Vasculature: The visualized abdominal aorta is normal in size and caliber. Evaluation of abdominal a nd pelvic vessels is limited due to lack of intravenous contrast. Pelvic Organs: Unremarkable Musculoskeletal: No aggressive focal bony lesions, acute fractures or dislocation. IMPRESSION: 1. No acute abdominal or pelvic findings. No definite evidence of gallstone pancreatitis. If concern persists consider further evaluation with MRI and MRCP of the abdomen with contrast. Nonspecific mist y mesentery with subcentimeter lymph nodes. Radiation optimization: All CT scans at this facility use at least one of these dose optimization roshni hniques: Automated exposure control mA and/or kV adjustment per patient size (includes targeted exams where dose is matched to clinical indication) or iterative reconstruction. HS:Y
[2024-04-29] MEDS: ONDANSETRON HCL 4 MG/2 ML VIAL IV ONE (15:58)
[2024-04-29] MEDS: fentaNYL CITRATE 100 MCG/2 ML VL IV ONE (15:59)
[2024-04-29] MEDS: SODIUM CHLORIDE 0.9% 1,000 ML IV ONE (16:02)
[2024-04-29 22:22] LABS: Triglycerides 87 mg/dL (< 150)
[2024-04-29 22:23] LABS: LDL Cholesterol 82 mg/dL (< 100)
[2024-04-29 22:24] LABS: Cholesterol 152 mg/dL (< 200)
[2024-04-29 22:28] LABS: HDL Cholesterol 65 mg/dL (40-59)
[2024-04-29] MEDS: MEROPENEM 1GM IVPB 50 ML IV ONE (23:43)
[2024-04-29 23:57] LABS: INR 1.01 (0.9-1.15); Partial Thromboplastin Time 24.5 SEC (24.5-34.5); Prothrombin Time 10.7 sec (9.3-11.8)
[2024-04-30 00:11] LABS: COVID19 ANTIGEN SOFIA FIA NEGATIVE (NEGATIVE); Rapid Influenza A Negative (Negative); Rapid Influenza B Negative (Negative)
[2024-04-30] MEDS: LACTATED RINGER'S 1,000 ML IV SCH (00:23)
[2024-04-30 01:14] VITALS: PULSE 63; RESP 14; O2SAT 96
--- NOTE | 2024-04-30 01:15 | DVHHPRES ---
History of Present Illness Resident Creating Document: BELLA MESSINA RESIDENT History of Present Illness This is a 53-year-old female with past medical history of hypothyroidism presented to the ED with a chief complaint of severe epigastric pain and vomiting for 1 day prior to this admission. The patient stated that epigastric pain started since 7:00 p.m. last night which was continuous, sharp pain 20/10 radiate to the back and associated with nausea and vomiting without any aggravating and relieving factors. [facility] with abdominal pain but she left AMA without taking any medical intervention. She also mentioned abdominal pain started intermittently1.5 months ago after started taking semaglutide injection and she received 6 injections. She denies chest pain, shortness of breath, dizziness, alcohol abuse, or diarrhea constipation, dysuria, hematuria sick contact or any change in bowel bowel and bladder movement. Past Medical History Hypothyroidism Past Surgical History 3 , tonsillectomy Family History Type 2 Diabetes mellitus runs in the family and both parents are diagnosed with COPD Past Social History Family Nonsmoker, occasional drinker and never tried any drugs. Review of Systems Constitutional: No: Fever, Chills, Sweats, Weakness, Malaise, Other Eyes: No: Pain, Vision change, Conjunctivae inflammation, Eyelid inflammation, Other, Redness ENT: No: Ear pain, Ear discharge, Nose pain, Nose discharge, Nose congestion, Mouth pain, Mouth swelling, Throat pain, Throat swelling, Other Respiratory: No: Cough, Dry, Shortness of breath, SOB with excertion, Wheezing, Hemoptysis, Pleuritic Pain, Sputum, Wheezing, Other Cardiovascular: No: Chest Pain, Palpitations, Orthopnea, Paroxysmal Noc. Dyspnea, Edema, Lt Headedness, Other Gastrointestinal: Nausea, Vomiting, Abdominal Pain; No: Diarrhea, Constipation, Melena, Hematochezia, Other Genitourinary: No Dysuria, No Frequency, No Incontinence, No Hematuria, No Retention, No Other Musculoskeletal: No: other, neck pain, shoulder pain, arm pain, back pain, hand pain, leg pain, foot pain Skin: No: Rash, Lesions, Jaundice, Bruising, Other Neurological: No: Weakness, Numbness, Incoordination, Change in speech, Confusion, Seizures, Other Allergies: Coded Allergies: Nitrofurantoin (Verified Allergy, Unknown, 04/24/24) Penicillins (Verified Allergy, Unknown, 04/24/24) Medications Current Medications Medications Dose Ordered Sig/Ashley Route Start Time Stop Time Status Last Admin Dose Admin Lactated Ringer's 1,000 ml @ 125 mls/hr Q8H IV 04/29/24 21:30 04/30/24 00:23 125 MLS/HR Pantoprazole Sodium 40 mg DAILY IV 04/30/24 10:00 Morphine Sulfate 2 mg Q4HPRN PRN IV 04/29/24 22:15 Ondansetron HCl 4 mg Q4HPRN PRN IV 04/29/24 22:15 Meropenem 50 ml @ 17 mls/hr Q8HR IV 04/30/24 06:00 Exam Vital Signs Vital Signs Date Time Temp Pulse Resp B/P (MAP) Pulse Ox O2 Delivery O2 Flow Rate FiO2 04/29/24 15:59 121/88 04/29/24 15:57 98.1 83 16 99 98.1 04/29/24 12:31 Room Air Exam Physical examination: General Appearance: Alert, Oriented X3, Cooperative, mild distress HEENT: Atraumatic, PERRLA, EOMI, Mucous membrane moist/pink Respiratory: Clear to auscultation, Normal air movement Cardiovascular: Regular rate, Normal S1, Normal S2, No murmurs, no chest wall tenderness Abdominal: Tenderness in the epigastric region, Normal bowel sounds, Soft, No hepatospenomegaly, No masses Extremities: No clubbing, No cyanosis, No edema, Normal pulses, No tenderness/swelling Skin: No rashes, No breakdown, No significant lesion Neuro: Normal gait, Normal speech, Strength at 5/5 X4 ext, Normal tone, Sensation intact, grossly intact cranial nerves Psych/Mental Status: Mental status NL, Mood NL Labs/Xrays Labs Test 04/30/24 00:45 04/29/24 23:25 04/29/24 23:05 04/29/24 11:17 Range/Units Prothrombin Time 10.7 9.3-11.8 sec Prothrombin Time INR 1.01 0.9-1.15 Activated Partial Thromboplast Time 24.5 24.5-34.5 SEC Lactic Acid Level 1.8 0.4-2.0 mmol/L Plasma/Serum Blood Alcohol < 3.0 <10 mg/dL Influenza Type A Antigen Negative Negative Influenza Type B Antigen Negative Negative SARS-CoV-2 Antigen (Rapid) Negative NEGATIVE White Blood Count 11.7 H 4.4-10.8 10^3/uL Red Blood Count 5.46 H 4.0-5.20 10^6/uL Hemoglobin 15.9 12.2-16.2 g/dL Hematocrit 48.1 H 36.0-46.0 % Mean Corpuscular Volume 88.0 80.0-100.0 fL Mean Corpuscular Hemoglobin 29.1 28.0-32.0 pg Mean Corpuscular Hemoglobin Concent 33.1 32.0-36.0 g/dL Red Cell Distribution Width 14.0 11.8-14.3 % Platelet Count 206 140-450 10^3/uL Mean Platelet Volume 8.7 6.9-10.8 fL Neutrophils (%) (Auto) 76.8 37.0-80.0 % Lymphocytes (%) (Auto) 15.6 10.0-50.0 % Monocytes (%) (Auto) 6.8 0.0-12.0 % Eosinophils (%) (Auto) 0.6 0.0-7.0 % Basophils (%) (Auto) 0.2 0.0-2.0 % Neutrophils # (Auto) 8.9 H 1.6-8.6 10 ^3/uL Lymphocytes # (Auto) 1.8 0.4-5.4 10 ^3/uL Monocytes # (Auto) 0.8 0-1.3 10 ^3/uL Eosinophils # (Auto) 0.1 0-0.8 10 ^3/uL Basophils # (Auto) 0 0-0.2 10 ^3/uL Nucleated Red Blood Cells 0.0 % Sodium Level 139 136-145 mmol/L Potassium Level 3.5 3.5-5.1 mmol/L Chloride Level 104 98-107 mmol/L Carbon Dioxide Level 25 20-31 mmol/L Anion Gap 10 5-15 Blood Urea Nitrogen 9 9-23 mg/dL Creatinine 0.98 0.550-1.02 mg/dL Glomerular Filtration Rate Calc 69 >90 mL/min BUN/Creatinine Ratio 9.2 L 10.0-20.0 Serum Glucose 115 H 74-106 mg/dL Calcium Level 10.5 H 8.7-10.4 mg/dL Total Bilirubin 1.7 H 0.2-1.0 mg/dL Aspartate Amino Transferase (AST) 279 H 13-40 U/L Alanine Aminotransferase (ALT) 107 H 7-40 U/L Alkaline Phosphatase 106 46-116 U/L Total Protein 7.6 5.7-8.2 g/dL Albumin 4.6 3.2-4.8 g/dL Triglycerides Level 87 < 150 mg/dL Cholesterol Level 152 < 200 mg/dL LDL Cholesterol 82 < 100 mg/dL HDL Cholesterol 65 H 40-59 mg/dL Lipase > 3500 H 12-53 U/L Assessment/Plan Assessment/Plan Assessment and plan: # Acute pancreatitis likely secondary to cholelithiasis - Lipase >3500 - U/S of W/A revealed mobile gallstone with pericholecystic fluid and thickened gallbladder - CT abdomen pelvis demonstrated no definitive evidence of gallstone pancreatitis - Ordered MRI of the abdomen with contrast and per pancreatic protocol - demonstrated low TG, cholesterol, LDL and elevated HDL - IV lactated ringer at 125 mL/hour - IV meropenem 1 gm Q 8 hours - IV ondansetron 4 mg Q 8 hours p.r.n. - IV morphine 2 mg q.4 p.r.n. # Hyperbillirubinemia with transaminitis - AST and ALT levels are 2:1 - Serum alcohol is <3 - Monitor CMP # Hypercalcemia likely due to dehydration - Patient is on IV fluid # Chronic hypothyroidism - Levothyroxine 50mcg po daily. # PUD prophylaxis - Protonix 40 mg IV daily # DVT prophylaxis - Not recommended as patient is mobile Goal of care discussed with the patient for more than 20 minutes full code Plan discussed with Dr. Hawley Plan discussed with: Patient, Other My Orders Orders - BELLA MESSINA RESIDENT Procedure Category Date Status Time Admit ADMIT 04/29/24 Transmitted 21:14 Lactated Ringer's PHA 04/29/24 In Process 21:30 Pantoprazole PHA 04/30/24 In Process (Protonix) 10:00 Morphine Sulfate PHA 04/29/24 In Process Injection 22:15 Abdomen Complete US 04/29/24 Taken Sonogram 22:04 Ondansetron Hcl PHA 04/29/24 In Process (Zofran) 22:15 Meropenem 1gm Ivpb PHA 04/30/24 In Process (Merrem 1gm/ Ns) 06:00 Drug Screen LAB 04/29/24 In Process 23:25 Mri Abdomen W And Wo MRI 04/29/24 Logged 23:25 Levothyroxine Tablet PHA 04/30/24 Verified (Synthroid Tablet) 06:00 Date of Service: Apr 29, 2024 Billing Provider: FERMIN HAWLEY MD Common Visit Codes: [id number] INP/OBS CARE (HIGH) KIANAJUDYPOONAMBELLA RESIDENT Apr 30, 2024 01:14 FERMIN HAWLEY MD Apr 30, 2024 08:36
[2024-04-30 01:48] LABS: Barbiturate Scree,Urine Neg (NEGATIVE); Opiate Scree,Urine Neg (NEGATIVE)
[2024-04-30 01:58] LABS: Amphetamine Screen, Urine Neg (NEGATIVE); Benzodiazephine Screen, Urine Neg (NEGATIVE); Cannabinoid Screen, Urine Neg (NEGATIVE); Cocaine Screen, Urine Neg (NEGATIVE); Phencyclidine Screen, Urine Neg (NEGATIVE)
[2024-04-30] MEDS: ONDANSETRON HCL 4 MG/2 ML VIAL IV PRN (02:20)
[2024-04-30] MEDS: MORPHINE SULFATE INJ 2 MG/ml SYRG IV PRN (02:21)
[2024-04-30 04:07] VITALS: PULSE 90; RESP 18; O2SAT 97
--- NOTE | 2024-04-30 05:16 | DVH ---
INDICATION: Acute pancreatitis TECHNIQUE: Real-time ultrasonography of the abdomen was performed. COMPARISON: CT 04/29/2024 FINDINGS: The liver appears prominent and echogenic. No intra or extrahepatic biliary dilatation. The common bile duct estimated 0.4 cm. Visualized portions of the pancreas appear unremarkable. Mobile gallstone s are noted with mild gallbladder wall thickening to 0.4 cm. Small amount of pericholecystic fluid. The right kidney measures 8.5 cm in length. Left kidney measures 10.8 cm in length. The kidneys henrietta ear unremarkable without hydronephrosis. The abdominal aorta, IVC, and spleen appear unremarkable. IMPRESSION: 1. Cholelithiasis with gallbladder wall thickening and pericholecystic fluid favors cholecystitis. 2. Echogenic appearance of the liver favors fibrofatty hepatocellular disease, most commonly hepatic steatosis.
[2024-04-30] MEDS ORDERED: MEROPENEM 1GM IVPB 50 ML IV SCH (06:00)
[2024-04-30] MEDS ORDERED: LEVOTHYROXINE SODIUM 50 MCG TAB PO SCH (06:00)
[2024-04-30] MEDS: LEVOTHYROXINE SODIUM 50 MCG TAB PO SCH (06:50)
[2024-04-30] MEDS ORDERED: LEVO-848 PO (07:41)
[2024-04-30 08:27] LABS: Basophils # (auto) 0 10 ^3/uL (0-0.2); Basophils % (auto) 0.3 % (0.0-2.0); Eosinophils # (auto) 0.1 10 ^3/uL (0-0.8); Eosinophils % (auto) 0.5 % (0.0-7.0); Hematocrit 41.7 % (36.0-46.0); Hemoglobin 14.3 g/dL (12.2-16.2); Lymphocytes # (auto) 2.1 10 ^3/uL (0.4-5.4); Lymphocytes % (auto) 20.6 % (10.0-50.0); Mean Corpuscular Hemoglobin 29.5 pg (28.0-32.0); Mean Corpuscular Hgb Conc. 34.3 g/dL (32.0-36.0); Monocytes # (auto) 0.7 10 ^3/uL (0-1.3); Monocytes % (auto) 6.3 % (0.0-12.0); Neutrophils # (auto) 7.4 10 ^3/uL (1.6-8.6); Neutrophils % (auto) 72.3 % (37.0-80.0); Platelet Count (auto) 175 10^3/uL (140-450); Red Blood Cells 4.85 10^6/uL (4.0-5.20); Red Cell Distribution Width 13.7 % (11.8-14.3); White Blood Cell 10.3 10^3/uL (4.4-10.8)
[2024-04-30 08:36] LABS: Albumin 3.8 g/dL (3.2-4.8); Alkaline Phosphatase 84 U/L (46-116); Anion Gap 9 (5-15); BUN/Creatinine Ratio 11.2 (10.0-20.0); Blood Urea Nitrogen 10 mg/dL (9-23); Calcium 9.1 mg/dL (8.7-10.4); Carbon Dioxide 25 mmol/L (20-31); Glucose 103 mg/dL (74-106); Potassium 3.7 mmol/L (3.5-5.1); Sodium 142 mmol/L (136-145)
[2024-04-30 08:37] LABS: Alanine Aminotransferase 59 U/L (7-40); Aspartate Aminotransferase 69 U/L (13-40); Bilirubin, Total 0.9 mg/dL (0.2-1.0); Chloride 108 mmol/L (98-107); Total Protein 6.1 g/dL (5.7-8.2)
[2024-04-30] MEDS: MEROPENEM 1GM IVPB 50 ML IV SCH (08:45)
[2024-04-30] MEDS: PANTOPRAZOLE 40 MG/10 ML VIAL INJ IV SCH (08:46)
[2024-04-30 09:00] VITALS: BP 131/73; PULSE 97; RESP 19; TEMP 98.6; O2SAT 97
[2024-04-30] MEDS: KETOROLAC TROMETH 30 MG/ML 1ML VIAL IV PRN (10:27)
[2024-04-30 10:53] LABS: Hepatitis B Surface Antigen Negative (Negative)
[2024-04-30 11:21] LABS: Hepatitis C Antibody Negative (Negative)
[2024-04-30 11:23] LABS: Urine Bacteria FEW /hpf (None Seen); Urine Blood Negative /uL (Negative); Urine Clarity Clear (Clear); Urine Color Yellow (Yellow); Urine Hyaline Cast FEW /lpf (0 - 2); Urine Mucus FEW (None Seen); Urine Protein, UAD Negative (Negative); Urine Specific Gravity 1.023 (1.001-1.035); Urine Squamous Epithelial Cell FEW /hpf (<5); Urine Urobilinogen 2 mg/dL (Negative); Urine WBC 3 /hpf (0 - 5); Urine pH 5.5 (5.0-9.0)
[2024-04-30 13:00] VITALS: BP 136/67; PULSE 89; RESP 18; TEMP 98.2; O2SAT 97
--- NOTE | 2024-04-30 15:18 | DVH ---
Procedure: MRI MRI ABDOMEN W AND WO 04/30/2024 12:54 PM Indication: Acute pancreatitis Comparison Study: Abdominal ultrasound CT scan dated 04/29/2024 Technique: Multi planar, multi sequence abdominal MRI without and with IV contrast was performed. 3D mm signal maximum intensity projection MRCP images were also obtained. FINDINGS: Lower Chest: Unremarkable. Hepatobiliary: Hepatic steatosis. Gallbladder is moderately distended with severe marrow edema and mo derate pericholecystic fluid. No intrahepatic ductal dilatation. The common bile duct measures 6 mm in caliber. There is mild mural thickening of CBD wall There is circumferential mural thickening of t he adjacent duodenum with moderate surrounding fat stranding. Spleen: Unremarkable. Pancreas: Unremarkable. Adrenal Glands: Unremarkable. tract: The kidneys are normal in size bilaterally without hydronephrosis or nephrolithiasis. GI tract: The stomach is grossly normal in appearance. Mild circumferential mural thickening of duode num with adjacent mesenteric edema. Mild edema is seen along the superior mesenteric vasculature axis . No evidence of small bowel obstruction. The large bowel is unremarkable. The appendix is not visu alized. No inflammatory change is noted in the right lower quadrant. Lymphatics: No mesenteric, retroperitoneal or periportal lymphadenopathy. Vasculature: The abdominal aorta is normal in in caliber. Bones/soft tissues: No acute abnormality. Other: None. IMPRESSION: 1. Findings most compatible with acalculous cholecystitis. Gallbladder is moderately distended with m ural thickening and pericholecystic edema. No gallstones are identified. 2. The common bile duct is borderline dilated measuring 6 mm without a distal obstructive process suc h as choledocholithiasis or mass . CBD and common hepatic duct mural thickening and enhancement noted . Cholangitis can not be ruled out. Recommend clinical correlation. 3. Mild circumferential mural thickening of duodenum likely reactive in nature secondary to inflammat ory changes in gallbladder fossa and art hepatis. Duodenitis can not be ruled out. No focal lesion or evidence of peptic ulcer disease. 4. Mild edema adjacent to the pancreatic head likely secondary to inflammatory changes in gallbladder fossa and art hepatis. Pancreatitis unlikely but not entirely excluded. Recommend clinical corre lation. 5. Hepatic steatosis. 6. Ann mesentery related to cholecystitis right upper quadrant inflammatory changes.
[2024-04-30] MEDS ORDERED: GADOTERATE MEG 10 MMOL/20ml INJ (0.5MMOL/ml) IV ONE (16:33)
[2024-04-30 17:00] VITALS: BP 132/76; PULSE 90; RESP 17; TEMP 98.2; O2SAT 95
--- NOTE | 2024-04-30 18:21 | DVHPNRES ---
Progress Note Date Seen: Apr 30, 2024 Resident Creating Document: ADELINA ADRIAN RESIDENT Medical Necessity Reason Pt with a Central, PICC or Fol: No Subjective Review of Systems This is a 53-year-old female with past medical history of hypothyroidism and morbid obesity, BMI 46.5. presented to the ED with a chief complaint of severe epigastric pain and vomiting for 1 day prior to this admission. The patient stated that epigastric pain started since 7:00 p.m. last night which was continuous, sharp pain 20/10 radiate to the back and associated with nausea and vomiting without any aggravating and relieving factors. She came to the ED of the [facility] 3 days ago with abdominal pain but she left AMA without taking any medical intervention. She also mentioned abdominal pain started intermittently1.5 months ago after started taking semaglutide injection and she received 6 injections. Patient is currently NPO, recent MRI of the abdomen showed possible acalculous cholecystitis, for which surgical consultation was ordered. Patient is under stable condition, surgical team will evaluate the patient tomorrow in the morning. Patient will need to continue IV antibiotics, currently on meropenem and IV fluids. Review of systems: Constitutional: No: Fever, Chills, Sweats, Weakness, Malaise, Other Eyes: No: Pain, Vision change, Conjunctivae inflammation, Eyelid inflammation, Other, Redness ENT: No: Ear pain, Ear discharge, Nose pain, Nose discharge, Nose congestion, Mouth pain, Mouth swelling, Throat pain, Throat swelling, Other Respiratory: No Wheezing, Hemoptysis, Pleuritic Pain, Sputum, Wheezing, Other Cardiovascular: No: Chest Pain, Palpitations, Orthopnea, Paroxysmal Noc. Dyspnea, Edema, Lt Headedness, Other Gastrointestinal: Yes: Moderate abdominal pain the right lower quadrant epigastrium and right upper quadrant No: Nausea, Vomiting, Abdominal Pain, Diarrhea, Constipation, Melena, Hematochezia, Other Musculoskeletal: No: other, neck pain, shoulder pain, arm pain, back pain, hand pain, leg pain, foot pain Neurological:; No: Weakness, Numbness, Incoordination, Change in speech, Confusion, Seizures Patient reports: No new complaints Objective vital signs Vital Sign Date Time Temp Pulse Resp B/P (MAP) Pulse Ox O2 Delivery O2 Flow Rate FiO2 04/30/24 13:00 98.2 89 18 136/67 (90) 97 98.2 04/30/24 08:00 Room Air* 0 21 Total Intake and Output 04/29/24 04/29/24 04/30/24 15:00 23:00 07:00 Intake Total 100 ml Balance 100 ml medications Current Medications Medications Dose Ordered Sig/Ashley Route Start Time Stop Time Status Last Admin Dose Admin Lactated Ringer's 1,000 ml @ 125 mls/hr Q8H IV 04/29/24 21:30 04/30/24 16:55 125 MLS/HR Pantoprazole Sodium 40 mg DAILY IV 04/30/24 10:00 04/30/24 08:46 40 MG Morphine Sulfate 2 mg Q4HPRN PRN IV 04/29/24 22:15 04/30/24 02:21 2 MG Ondansetron HCl 4 mg Q4HPRN PRN IV 04/29/24 22:15 04/30/24 02:20 4 MG Ketorolac Tromethamine 15 mg Q6HPRN PRN IV 04/30/24 03:00 05/05/24 02:59 04/30/24 17:06 15 MG Levothyroxine Sodium 50 mcg QAM@0600 PO 04/30/24 06:00 04/30/24 06:50 50 MCG Meropenem 50 ml @ 17 mls/hr Q8H IV 04/30/24 09:00 04/30/24 08:45 17 MLS/HR Examination Examination General Appearance: Alert, Oriented X3, Cooperative, moderate acute distress Respiratory: Clear to auscultation, Normal air movement Cardiovascular: Regular rate, Normal S1, Normal S2 Abdominal: Normal bowel sounds no guarding no rebound, mildly tender on palpation in the right lower quadrant right upper quadrant and epigastrium Extremities: No cyanosis, No edema, Normal pulses, No tenderness/swelling Skin: No rashes, No breakdown Neuro: Normal gait, Normal speech, Strength at 5/5 X4 ext, Normal tone, Sensation intact, Cranial nerves 3-12 NL, Reflexes 2+ Psych/Mental Status: Mental status NL, Mood NL laboratory and microbiology Laboratory Tests 04/30/24 07:23 Test 04/30/24 07:23 Range/Units Serum Glucose 103 74-106 mg/dL Problem List/Assessment/Plan Problem List/Assessment/Plan # acute severe abdominal pain likely due to ?acalculus cholecystitis based on recent findings on MRI, less likely to be acute pancreatitis though not excluded # ?Gallstone pancreatitis # ?Acute cholecystitis # Mild edema adjacent to the pancreatic head - Patient currently stable - Lipase >3500, now 209 - NPO - Surgical consult - PT/INR - Type and screen - continue IV antibiotics/add flagyl - IV ondansetron 4 mg Q 8 hours p.r.n. - IV morphine 2 mg q.4 p.r.n. # Hyperbillirubinemia with transaminitis - AST and ALT levels are 2:1 - Serum alcohol is <3 - Monitor CMP # Hypercalcemia likely due to dehydration - Patient is on IV fluid #Hepatic steatosis - monitor # Chronic hypothyroidism - Levothyroxine 50mcg po daily. #Drugs screen , fentanyl positive - likely from previous admission 3 days ago #Morbid obesity -Lifestyle modification counseling and dietary habits counseling # PUD prophylaxis - Protonix 40 mg IV daily # DVT prophylaxis - Not recommended as patient is mobile Case discussed with Dr. Kimble Goals of care discussed with the patient for 27 minutes code status: Full code Plan discussed with: Patient, Spouse My Orders My Orders Orders - ADELINA ADRIAN Procedure Category Date Status Time Npo (Nothing By DIET 04/30/24 Transmitted Mouth) Diet Dinner Prothrombin Time W/ LAB 04/30/24 Logged INR 16:20 Type And Screen BBK 04/30/24 Logged 16:20 * Surgical Consult CONS 04/30/24 Transmitted 16:27 Date of Service: Apr 30, 2024 Billing Provider: DARION KIMBLE MD Common Visit Codes: [id number] INP/OBS CARE(HIGH) ADELINA ADRIAN Apr 30, 2024 18:21 DARION KIMBLE MD Apr 30, 2024 19:36
[2024-04-30 19:00] LABS: INR 1.03 (0.9-1.15); Prothrombin Time 10.9 sec (9.3-11.8)
--- NOTE | 2024-04-30 19:42 | DVHINCON2 ---
Date of service: Apr 30, 2024 History of Present Illness 53-year-old female complaining of epigastric abdominal pain associated with nausea for past month that became very severe yesterday. Patient denies any fev ers or chills. Past Medical History Obesity. Hypothyroidism. Past Surgical History Three C-sections. Family History: Chronic obstructive pulmonary disease G8 MOTHER G8 FATHER Diabetes mellitus G8 FATHER Family History Noncontributory Social History Denies alcohol, tobacco, IV drug use Allergies: Coded Allergies: Nitrofurantoin (Verified Allergy, Unknown, 04/24/24) Penicillins (Verified Allergy, Unknown, 04/24/24) Home Meds Active Scripts Calcium Carbonate (Antacid) (Maalox) 600 Mg Chw, 600 MG PO BID PRN, #30 TAB.CHEW Prov:RICARDO LEE MD 04/25/24 Ondansetron Odt 4MG Tab (ZOFRAN PO) 4 Mg Tb, 4 MG PO QIDPRN PRN, #20 TAB ODT TAB-DISSOLVE IN MOUTH, THEN SWALLOW Prov:RICARDO LEE MD 04/25/24 Reported Medications Levothyroxine Sodium (SYNTHROID TABLET) 50 Mcg Tb, 1 TAB PO DAILY, #30 TAB 5 Refills 04/30/24 Current Medications Current Medications Medications (Trade) Dose Ordered Sig/Ashley Route PRN Reason Start Time Stop Time Status Last Admin Lactated Ringer's 1,000 ml @ 125 mls/hr Q8H IV 04/29/24 21:30 04/30/24 16:55 Pantoprazole Sodium (Protonix) 40 mg DAILY IV 04/30/24 10:00 04/30/24 08:46 Morphine Sulfate 2 mg Q4HPRN PRN IV MODERATE PAIN (4-6 PAIN SCALE) 04/29/24 22:15 04/30/24 02:21 Ondansetron HCl (Zofran) 4 mg Q4HPRN PRN IV NAUSEA / VOMITING 04/29/24 22:15 04/30/24 02:20 Meropenem 50 ml @ 17 mls/hr Q8HR IV 04/30/24 06:00 04/30/24 07:54 DC Levothyroxine Sodium (Synthroid Tablet) 50 mcg QAM@0600 PO 04/30/24 06:00 04/30/24 05:37 DC Ketorolac Tromethamine (Toradol Injection) 15 mg Q6HPRN PRN IV MODERATE PAIN (4-6 PAIN SCALE) 04/30/24 03:00 05/05/24 02:59 04/30/24 17:06 Levothyroxine Sodium (Synthroid Tablet) 50 mcg QAM@0600 PO 04/30/24 06:00 04/30/24 06:50 Meropenem 50 ml @ 17 mls/hr Q8H IV 04/30/24 09:00 04/30/24 19:27 Metronidazole 100 ml @ 100 mls/hr Q8HR IV 04/30/24 22:00 UNV Vital Signs Vital Signs Date Time Temp Pulse Resp B/P (MAP) Pulse Ox O2 Delivery O2 Flow Rate FiO2 04/30/24 17:00 98.2 90 17 132/76 (94) 95 98.2 04/30/24 08:00 Room Air* 0 21 Physical Exam GEN: Age appropriate obese female in no acute distress. Alert. HEENT: Normocephalic atraumatic. Moist mucous membranes. Anicteric sclerae. CV: RRR Respiratory: CTAB ABD: Obese abdomen with epigastric tenderness to palpation with minimal guarding. Nondistended. Abdominal ultrasound: Cholelithiasis with gallbladder wall thickening and pericholecystic fluid. Common bile duct within normal limits. Labs/Diagnostic Data Labs Test 04/30/24 17:48 04/30/24 10:30 04/30/24 07:23 04/30/24 00:45 Range/Units Prothrombin Time 10.9 9.3-11.8 sec Prothrombin Time INR 1.03 0.9-1.15 Activated Partial Thromboplast Time 22.8 L 24.5-34.5 SEC Urine Color Yellow Yellow Urine Clarity Clear Clear Urine pH 5.5 5.0-9.0 Urine Specific [place] 1.023 1.001-1.035 Urine Protein Negative Negative Urine Ketones 1+ H Negative Urine Blood Negative Negative /uL Urine Nitrite Negative Negative Urine Bilirubin Negative Negative Urine Urobilinogen 2 H Negative mg/dL Urine Leukocyte Esterase Negative Negative /uL Urine RBC 2 0 - 4 /hpf Urine WBC 3 0 - 5 /hpf Urine Squamous Epithelial Cells Few <5 /hpf Urine Bacteria Few H None Seen /hpf Urine Hyaline Casts Few 0 - 2 /lpf Urine Mucus Few None Seen Urine Glucose Normal Normal mg/dL White Blood Count 10.3 4.4-10.8 10^3/uL Red Blood Count 4.85 4.0-5.20 10^6/uL Hemoglobin 14.3 12.2-16.2 g/dL Hematocrit 41.7 # 36.0-46.0 % Mean Corpuscular Volume 86.0 80.0-100.0 fL Mean Corpuscular Hemoglobin 29.5 28.0-32.0 pg Mean Corpuscular Hemoglobin Concent 34.3 32.0-36.0 g/dL Red Cell Distribution Width 13.7 11.8-14.3 % Platelet Count 175 140-450 10^3/uL Mean Platelet Volume 8.6 6.9-10.8 fL Neutrophils (%) (Auto) 72.3 37.0-80.0 % Lymphocytes (%) (Auto) 20.6 10.0-50.0 % Monocytes (%) (Auto) 6.3 0.0-12.0 % Eosinophils (%) (Auto) 0.5 0.0-7.0 % Basophils (%) (Auto) 0.3 0.0-2.0 % Neutrophils # (Auto) 7.4 1.6-8.6 10 ^3/uL Lymphocytes # (Auto) 2.1 0.4-5.4 10 ^3/uL Monocytes # (Auto) 0.7 0-1.3 10 ^3/uL Eosinophils # (Auto) 0.1 0-0.8 10 ^3/uL Basophils # (Auto) 0 0-0.2 10 ^3/uL Nucleated Red Blood Cells 0.0 % Sodium Level 142 136-145 mmol/L Potassium Level 3.7 3.5-5.1 mmol/L Chloride Level 108 H 98-107 mmol/L Carbon Dioxide Level 25 20-31 mmol/L Anion Gap 9 5-15 Blood Urea Nitrogen 10 9-23 mg/dL Creatinine 0.89 0.550-1.02 mg/dL Glomerular Filtration Rate Calc 77 >90 mL/min BUN/Creatinine Ratio 11.2 10.0-20.0 Serum Glucose 103 74-106 mg/dL Calcium Level 9.1 8.7-10.4 mg/dL Total Bilirubin 0.9 0.2-1.0 mg/dL Aspartate Amino Transferase (AST) 69 H 13-40 U/L Alanine Aminotransferase (ALT) 59 H 7-40 U/L Alkaline Phosphatase 84 46-116 U/L Lactate Dehydrogenase 163 120-246 U/L Total Protein 6.1 5.7-8.2 g/dL Albumin 3.8 3.2-4.8 g/dL Lipase 209 H 12-53 U/L Hepatitis B Surface Antigen Negative Negative Hepatitis C Antibody Negative Negative Urine Opiates Screen Neg NEGATIVE Urine Fentanyl Screen Pos NEGATIVE Urine Barbiturates Screen Neg NEGATIVE Urine Phencyclidine Screen Neg NEGATIVE Urine Amphetamines Screen Neg NEGATIVE Urine Benzodiazepines Screen Neg NEGATIVE Urine Cocaine Screen Neg NEGATIVE Urine Cannabinoids Screen Neg NEGATIVE Test 04/29/24 23:25 04/29/24 23:05 04/29/24 11:17 Range/Units Lactic Acid Level 1.8 0.4-2.0 mmol/L Thyroid Stimulating Hormone (TSH) 4.12 0.55-4.78 uIU/mL Free Thyroxine (T4) Calculated 1.18 0.89-1.76 ng/dL Plasma/Serum Blood Alcohol < 3.0 <10 mg/dL Influenza Type A Antigen Negative Negative Influenza Type B Antigen Negative Negative SARS-CoV-2 Antigen (Rapid) Negative NEGATIVE Triglycerides Level 87 < 150 mg/dL Cholesterol Level 152 < 200 mg/dL LDL Cholesterol 82 < 100 mg/dL HDL Cholesterol 65 H 40-59 mg/dL Assessment 1. Acute cholecystitis 2. Gallstone pancreatitis Plan/Recommendation 1. Laparoscopic cholecystectomy possible open surgery Informed consent: The surgery and its risks including but not limited to infection, bleeding requiring possible blood transfusion with the risk of hepatitis or HIV infection, open surgery, possible perioperative NC or stroke, possible cystic duct leak or retained common bile duct stone requiring further intervention such as an ERCP were explained to the patient and her . All questions were answered to their satisfaction. The patient expressed verbal understanding and wished to proceed with the surgery. Plan discussed with: Patient, Spouse DARON LEDESMA MD Apr 30, 2024 19:42
[2024-04-30 21:00] VITALS: BP_SYST 133; BP_SYST 141; BP_DIAS 75; BP_DIAS 83; PULSE 80; PULSE 85; RESP 12; TEMP 97.8; TEMP 98; O2SAT 100; O2SAT 96
[2024-04-30] MEDS: metroNIDAZOLE 500MG/100ML 100 ML IV SCH (22:41)
[2024-05-01] VITALS (7 sets, daily range): BP systolic 110–144; BP diastolic 61–83; PULSE 80–92; RESP 12–20; TEMP 97.8–98.2; O2SAT 93–99
--- NOTE | 2024-05-01 06:00 | DVH ---
CHEST RADIOGRAPH Indication: pre-op Technique: Single frontal view of the chest was obtained COMPARISON: None FINDINGS: Lines and Tubes: None Lungs: Clear Pleura: No effusion. No pneumothorax. Cardiomediastinal contours: Unremarkable Bones: Unremarkable IMPRESSION: No acute disease.
[2024-05-01 09:54] LABS: Basophils # (auto) 0 10 ^3/uL (0-0.2); Basophils % (auto) 0.5 % (0.0-2.0); Eosinophils # (auto) 0.2 10 ^3/uL (0-0.8); Eosinophils % (auto) 1.7 % (0.0-7.0); Hematocrit 44.4 % (36.0-46.0); Hemoglobin 15.2 g/dL (12.2-16.2); Lymphocytes # (auto) 3.1 10 ^3/uL (0.4-5.4); Lymphocytes % (auto) 32.4 % (10.0-50.0); Mean Corpuscular Hemoglobin 29.8 pg (28.0-32.0); Mean Corpuscular Hgb Conc. 34.1 g/dL (32.0-36.0); Mean Corpuscular Volume 87.4 fL (80.0-100.0); Monocytes # (auto) 0.6 10 ^3/uL (0-1.3); Monocytes % (auto) 6.3 % (0.0-12.0); Neutrophils # (auto) 5.7 10 ^3/uL (1.6-8.6); Neutrophils % (auto) 59.1 % (37.0-80.0); Nucleated Red Blood Cells % 0.1 %; Platelet Count (auto) 169 10^3/uL (140-450); Red Blood Cells 5.08 10^6/uL (4.0-5.20); Red Cell Distribution Width 13.8 % (11.8-14.3); White Blood Cell 9.7 10^3/uL (4.4-10.8)
[2024-05-01 10:25] LABS: Alkaline Phosphatase 86 U/L (46-116); Anion Gap 11 (5-15); Aspartate Aminotransferase 35 U/L (13-40); BUN/Creatinine Ratio 10.9 (10.0-20.0); Blood Urea Nitrogen 10 mg/dL (9-23); Calcium 9.4 mg/dL (8.7-10.4); Carbon Dioxide 23 mmol/L (20-31); Glucose 103 mg/dL (74-106); Potassium 3.6 mmol/L (3.5-5.1); Sodium 142 mmol/L (136-145)
[2024-05-01 10:26] LABS: Bilirubin, Total 0.9 mg/dL (0.2-1.0); Total Protein 6.6 g/dL (5.7-8.2)
[2024-05-01 10:39] LABS: Alanine Aminotransferase 41 U/L (7-40); Chloride 108 mmol/L (98-107)
--- NOTE | 2024-05-01 10:53 | ECG ---
[facility] Test Date: 2024-04-30 Test Time: 22:22:38 Pat Name: FRANKIE BLANK Department: Room: 0295 B Gender: F Cna Ltc: DEANNA : 1970 Requested By: BELLA MESSINA Order Number: [id number] Reading MD: Yoly Lopez Measurements Intervals [place] Rate: 89 P: 72 [place]: 141 QRS: 69 QRSD: 98 T: 49 QT: 348 QTc: 424 Interpretive Statements Sinus rhythm Electronically Signed On 05-01-2024 14:28:35 PST by Yoly Lopez Please click the below link to view image of tracing.
[2024-05-01 10:54] LABS: Lipase 46 U/L (12-53)
[2024-05-01] MEDS ORDERED: LIDOCAINE W/ EPINEPHRINE 1% 20ML VIAL ONE (15:50)
[2024-05-01] MEDS ORDERED: ONDANSETRON HCL 4 MG/2 ML VIAL IV ONE (16:00)
[2024-05-01] MEDS ORDERED: HYDROmorphone HCL 2 MG/ML VL/or syr IV PRN (16:00)
[2024-05-01] MEDS ORDERED: HYDROmorphone HCL 2 MG/ML VL/or syr ONE (16:02)
[2024-05-01] MEDS ORDERED: MIDAZOLAM HCL 2MG/2ML 2ml VIAL (1mg/ml) ONE (16:02)
[2024-05-01] MEDS ORDERED: fentaNYL CITRATE 100 MCG/2 ML VL ONE (16:02)
[2024-05-01] MEDS ORDERED: KETAMINE 50mg/ML 1ml syringe ONE (16:02)
[2024-05-01] MEDS ORDERED: PHENYLEPHRINE HCL 10 MG/ML VL ONE (16:03)
[2024-05-01] MEDS ORDERED: KETOROLAC TROMETH 30 MG/ML 1ML VIAL ONE (16:03)
[2024-05-01] MEDS ORDERED: GLYCOPYRROLATE 0.2 MG/ML 1ML VIAL ONE (16:03)
[2024-05-01] MEDS ORDERED: ONDANSETRON HCL 4 MG/2 ML VIAL ONE (16:03)
[2024-05-01] MEDS ORDERED: ePHEDrine SULFATE 50 MG/ML AMP ONE (16:03)
[2024-05-01] MEDS ORDERED: ROCURONIUM 10MG/ML 10ML VIAL IV ONE (16:03)
[2024-05-01] MEDS ORDERED: PROPOFOL 10 MG/ML 20 ML IV ONE (16:03)
[2024-05-01] MEDS ORDERED: SUGAMMADEX 200mg/2ml Vial (100MG/ML) IV ONE (16:41)
[2024-05-01] MEDS: Lidocaine/Epinephrine 1%-1:100,000 30ML VL IJ ONE (16:45)
--- NOTE | 2024-05-01 17:37 | DVHOP2 ---
Operative Report - 2 Report Details Date: 05/01/24 Preop Diagnosis: 1. Acute cholecystitis 2. Gallstone pancreatitis Postop Diagnosis: Same Surgeon: Daron Berrios MD Electrolysis Investigator: None Anesthesiologist: Dr. Zapata Anesthesia: General, Local Drains: Fifteen Lithuanian Adonis drain Consent: The surgery and its risks including but not limited to infection, bleeding requiring possible blood transfusion with the risk of hepatitis or HIV infection, possible open surgery, possible cystic duct leak or retained common bile duct stone requiring further intervention such as an ERCP, possible perioperative [place] or stroke were explained to the patient. All questions were answered to her satisfaction. She expressed verbal understanding and wished to proceed with the surgery. Complications: Some bile and stone spillage. All visible stones were retrieved. Estimated Blood Loss: 100 mL Fluids: 1500 mL Name of Procedure Performed Laparoscopic cholecystectomy Procedure Details Procedure Details: After induction of general anesthesia, patient's abdomen was prepped and draped in standard surgical fashion. A small supraumbilical incision was made and this incision was taken through the abdominal wall down to the fascia which was opened using electrocautery. Peritoneum was then bluntly divided gaining access to the intra-abdominal cavity. Interrupted 0 Vicryl sutures were placed through the fascial incision and using an open technique, Juan trocar was introduced and secured using the Vicryl sutures. Abdomen was insufflated to 15 mmHg and camera was inserted. Visual examination of the intestine under the fascial incision appeared normal without injury. Under direct visualization, a 5 mm bladeless trocar was placed in the subxiphoid region and two additional 5 mm bladeless trocars were placed in the right upper quadrant all under direct visualization. Examination of the right upper quadrant revealed a very large liver with very elongated and edematous gallbladder. Gallbladder was then grasped and retracted in a cephalad direction. Infundibulum was retracted laterally. Careful blunt dissection was performed to identify the cystic duct which appeared normal in size. This was clipped and divided using Endoclips without complication. Just next to the cystic duct the cystic artery was located and this was also clipped and divided using Endoclips without complication. Gallbladder was then removed from the liver bed using electrocautery. There was some bile and stone spillage during the maneuver but all visible stones were retrieved. Gallbladder was then removed from the abdominal cavity using an endo pouch bag and sent off the surgical field. Abdomen was then re-insufflated. Hemostasis in the liver bed was achieved using electrocautery. Right upper quadrant was then well irrigated and Sandeep hemostatic powder was sprayed onto the gallbladder fossa for additional hemostasis. A 15 Lithuanian Adonis drain was placed into the right upper quadrant and brought out through the lateral 5 mm trocar site and secured to the skin using 3-0 nylon sutures. Rest of the trocars were then removed under direct visualization as the abdomen was deflated. Additional interrupted 0 Vicryl sutures were placed through the supraumbilical fascial incision and all sutures were tied down closing off the supraumbilical fascia. Surgical sites were irr igated injected with 20 mL of 0.25% Marcaine with epinephrine. Skin incisions were closed using sia. Surgical sites were cleaned and dried and dressings were applied. Sponge, needle, instrument count at the end of the case were reported to be correct by the nursing staff. The patient tolerated procedure well and at the time of dictation she is being transferred back to recovery in stable condition. Specimen: Gallbladder and gallstones Condition Stable Disposition Still a Patient DARON BERRIOS MD May 01, 2024 17:37
--- NOTE | 2024-05-01 18:04 | DVHPNRES ---
Progress Note Date Seen: May 01, 2024 Resident Creating Document: ADELINA ADRIAN RESIDENT Medical Necessity Reason Pt with a Central, PICC or Fol: No Subjective Review of Systems This is a 53-year-old female with past medical history of hypothyroidism and morbid obesity, BMI 46.5. presented to the ED with a chief complaint of severe epigastric pain and vomiting for 1 day prior to this admission. The patient stated that epigastric pain started since 7:00 p.m. last night which was continuous, sharp pain 20/10 radiate to the back and associated with nausea and vomiting without any aggravating and relieving factors. She came to the ED of the [facility] 3 days ago with abdominal pain but she left AMA without taking any medical intervention. She also mentioned abdominal pain started intermittently1.5 months ago after started taking semaglutide injection and she received 6 injections. Preoperative diagnosis are acute cholecystitis and gallstone pancreatitis.Laparoscopic cholecystectomy was performed today, patient reports feeling well without acute complaints. During the procedure happened some bile and stone spillage. All visible stones were retrieved. Patient will need to continue IV antibiotics, currently on meropenem and metronidazole and IV fluids. Patient reports: Feels better Changes from previous H/P or p: Changes Objective vital signs Vital Sign Date Time Temp Pulse Resp B/P (MAP) Pulse Ox O2 Delivery O2 Flow Rate FiO2 05/01/24 13:00 97.9 80 18 133/83 (100) 95 97.9 05/01/24 08:00 Room Air* 0 21 Total Intake and Output 04/30/24 04/30/24 05/01/24 15:00 23:00 07:00 Intake Total 50 ml 1400 ml 250 ml Output Total 0 ml Balance 50 ml 1400 ml 250 ml medications Current Medications Medications Dose Ordered Sig/Ashley Route Start Time Stop Time Status Last Admin Dose Admin Lactated Ringer's 1,000 ml @ 125 mls/hr Q8H IV 04/29/24 21:30 05/01/24 16:08 125 MLS/HR Pantoprazole Sodium 40 mg DAILY IV 04/30/24 10:00 05/01/24 10:16 40 MG Morphine Sulfate 2 mg Q4HPRN PRN IV 04/29/24 22:15 04/30/24 02:21 2 MG Ondansetron HCl 4 mg Q4HPRN PRN IV 04/29/24 22:15 04/30/24 02:20 4 MG Ketorolac Tromethamine 15 mg Q6HPRN PRN IV 04/30/24 03:00 05/05/24 02:59 05/01/24 05:00 15 MG Levothyroxine Sodium 50 mcg QAM@0600 PO 04/30/24 06:00 05/01/24 05:03 50 MCG Meropenem 50 ml @ 17 mls/hr Q8H IV 04/30/24 09:00 05/01/24 10:17 17 MLS/HR Metronidazole 100 ml @ 100 mls/hr Q8HR IV 04/30/24 22:00 05/01/24 05:05 100 MLS/HR Examination: GENERAL:Normal, HEENT:Normal, NECK:Normal, LUNGS:Normal, CVS:Normal, ABDOMEN:Normal, MSK:Normal, SKIN:Normal, NEURO:Normal, :Normal laboratory and microbiology Laboratory Tests 05/01/24 09:30 Test 05/01/24 09:30 Range/Units Serum Glucose 103 74-106 mg/dL Microbiology Date/Time Source Procedure Growth Status 04/30/24 06:52 Nose MRSA Screen - Final Complete Problem List/Assessment/Plan Problem List/Assessment/Plan # acute severe abdominal pain likely due to acute cholecystitis and gallstone pancreatitis #Mild edema adjacent to the pancreatic head #gallstone pancreatitis #Acalculous cholecystitis was ruled out - Patient currently stable - Surgery was performed today - continue IV antibiotics - IV ondansetron 4 mg Q 8 hours p.r.n. - IV morphine 2 mg q.4 p.r.n. # Hyperbillirubinemia with transaminitis - AST and ALT levels are 2:1 - Serum alcohol is <3 - Monitor CMP # Hypercalcemia likely due to dehydration - Patient is on IV fluid #Hepatic steatosis - monitor # Chronic hypothyroidism - Levothyroxine 50mcg po daily. #Drugs screen , fentanyl positive - likely from previous admission 3 days ago #Morbid obesity -Lifestyle modification counseling and dietary habits counseling # PUD prophylaxis - Protonix 40 mg IV daily # DVT prophylaxis - Not recommended as patient is mobile Case discussed with Dr. Centeno Goals of care discussed with the patient for 27 minutes code status: Full code Plan discussed with: Patient STOVER EADELINA RESIDENT May 01, 2024 18:04
[2024-05-02 01:00] VITALS: BP 130/71; PULSE 86; RESP 17; TEMP 98; O2SAT 96
[2024-05-02 05:00] VITALS: BP 120/56; PULSE 88; RESP 18; TEMP 98; O2SAT 93
[2024-05-02 07:40] LABS: Alanine Aminotransferase 33 U/L (7-40); Albumin 4.1 g/dL (3.2-4.8); Alkaline Phosphatase 82 U/L (46-116); Anion Gap 10 (5-15); Aspartate Aminotransferase 30 U/L (13-40); BUN/Creatinine Ratio 10.6 (10.0-20.0); Basophils # (auto) 0 10 ^3/uL (0-0.2); Basophils % (auto) 0.1 % (0.0-2.0); Blood Urea Nitrogen 9 mg/dL (9-23); Calcium 9.2 mg/dL (8.7-10.4); Carbon Dioxide 25 mmol/L (20-31); Chloride 105 mmol/L (98-107); Eosinophils # (auto) 0 10 ^3/uL (0-0.8); Glucose 130 mg/dL (74-106); Hemoglobin 14.6 g/dL (12.2-16.2); Lymphocytes # (auto) 1.1 10 ^3/uL (0.4-5.4); Lymphocytes % (auto) 7.7 % (10.0-50.0); Mean Corpuscular Hemoglobin 29.5 pg (28.0-32.0); Mean Corpuscular Hgb Conc. 33.9 g/dL (32.0-36.0); Mean Corpuscular Volume 86.8 fL (80.0-100.0); Monocytes # (auto) 0.4 10 ^3/uL (0-1.3); Monocytes % (auto) 2.8 % (0.0-12.0); Neutrophils # (auto) 12.3 10 ^3/uL (1.6-8.6); Neutrophils % (auto) 89.4 % (37.0-80.0); Platelet Count (auto) 172 10^3/uL (140-450); Potassium 3.9 mmol/L (3.5-5.1); Red Blood Cells 4.96 10^6/uL (4.0-5.20); Red Cell Distribution Width 13.4 % (11.8-14.3); Sodium 140 mmol/L (136-145); White Blood Cell 13.8 10^3/uL (4.4-10.8)
[2024-05-02 07:41] LABS: Bilirubin, Total 0.6 mg/dL (0.2-1.0); Total Protein 6.7 g/dL (5.7-8.2)
[2024-05-02 08:00] VITALS: PULSE 90; RESP 19
--- NOTE | 2024-05-02 08:43 | CODING ---
Date of Service: May 01, 2024 Billing Provider: MANDI AQUINO MD Common Visit Codes: [id number] INP/OBS CARE(HIGH) MANDI AQUINO MD May 02, 2024 08:43
[2024-05-02 09:00] VITALS: BP 142/82; PULSE 78; RESP 17; TEMP 97.7; O2SAT 99
[2024-05-02 09:19] LABS: Lipase 33 U/L (12-53)
[2024-05-02] MEDS ORDERED: SACUBITRIL-VALSARTAN 24mg/26mg TAB PO SCH (10:00)
--- NOTE | 2024-05-02 10:05 | ECG ---
[facility] Test Date: 2024-05-01 Test Time: 11:41:35 Pat Name: FRANKIE BLANK Department: Room: 0295 B Gender: F Home Care Giver: juan : 1970 Requested By: ADELINA MATIAS Order Number: [id number] Reading MD: Yoly Lopez Measurements Intervals [place] Rate: 78 P: 54 [place]: 139 QRS: 53 QRSD: 96 T: 32 QT: 365 QTc: 416 Interpretive Statements Sinus rhythm Low voltage, precordial leads Electronically Signed On 05-02-2024 10:49:00 PST by Yoly Lopez Please click the below link to view image of tracing.
[2024-05-02 12:51] VITALS: BP 112/57; PULSE 90; RESP 17; TEMP 97.9; O2SAT 97
[2024-05-02 15:48] VITALS: BP 112/64; PULSE 74; RESP 17; TEMP 98.2; O2SAT 97
[2024-05-02] MEDS ORDERED: TRAM-626 PO (16:19)
--- NOTE | 2024-05-02 22:32 | DVHDSRES ---
Discharge Summary Date of Admission Resident Creating Document: ADELINA ADRIAN RESIDENT Apr 29, 2024 at 21:14 Date of Discharge: May 02, 2024 Admitting Diagnosis acute abdominal pain likely acute pancreatitis Labs/Diagnostic Data: Laboratory Results Test 05/02/24 06:36 04/30/24 17:48 04/30/24 10:30 04/30/24 07:23 White Blood Count 13.8 10^3/uL (4.4-10.8) Red Blood Count 4.96 10^6/uL (4.0-5.20) Hemoglobin 14.6 g/dL (12.2-16.2) Hematocrit 43.0 % (36.0-46.0) Mean Corpuscular Volume 86.8 fL (80.0-100.0) Mean Corpuscular Hemoglobin 29.5 pg (28.0-32.0) Mean Corpuscular Hemoglobin Concent 33.9 g/dL (32.0-36.0) Red Cell Distribution Width 13.4 % (11.8-14.3) Platelet Count 172 10^3/uL (140-450) Mean Platelet Volume 8.8 fL (6.9-10.8) Neutrophils (%) (Auto) 89.4 % (37.0-80.0) Lymphocytes (%) (Auto) 7.7 % (10.0-50.0) Monocytes (%) (Auto) 2.8 % (0.0-12.0) Eosinophils (%) (Auto) 0.0 % (0.0-7.0) Basophils (%) (Auto) 0.1 % (0.0-2.0) Neutrophils # (Auto) 12.3 10 ^3/uL (1.6-8.6) Lymphocytes # (Auto) 1.1 10 ^3/uL (0.4-5.4) Monocytes # (Auto) 0.4 10 ^3/uL (0-1.3) Eosinophils # (Auto) 0 10 ^3/uL (0-0.8) Basophils # (Auto) 0 10 ^3/uL (0-0.2) Nucleated Red Blood Cells 0.0 % Sodium Level 140 mmol/L (136-145) Potassium Level 3.9 mmol/L (3.5-5.1) Chloride Level 105 mmol/L (98-107) Carbon Dioxide Level 25 mmol/L (20-31) Anion Gap 10 (5-15) Blood Urea Nitrogen 9 mg/dL (9-23) Creatinine 0.85 mg/dL (0.550-1.02) Glomerular Filtration Rate Calc 81 mL/min (>90) BUN/Creatinine Ratio 10.6 (10.0-20.0) Serum Glucose 130 mg/dL (74-106) Calcium Level 9.2 mg/dL (8.7-10.4) Total Bilirubin 0.6 mg/dL (0.2-1.0) Aspartate Amino Transferase (AST) 30 U/L (13-40) Alanine Aminotransferase (ALT) 33 U/L (7-40) Alkaline Phosphatase 82 U/L (46-116) Total Protein 6.7 g/dL (5.7-8.2) Albumin 4.1 g/dL (3.2-4.8) Lipase 33 U/L (12-53) Prothrombin Time 10.9 sec (9.3-11.8) Prothrombin Time INR 1.03 (0.9-1.15) Activated Partial Thromboplast Time 22.8 SEC (24.5-34.5) Urine Color Yellow (Yellow) Urine Clarity Clear (Clear) Urine pH 5.5 (5.0-9.0) Urine Specific [place] 1.023 (1.001-1.035) Urine Protein Negative (Negative) Urine Ketones 1+ (Negative) Urine Blood Negative /uL (Negative) Urine Nitrite Negative (Negative) Urine Bilirubin Negative (Negative) Urine Urobilinogen 2 mg/dL (Negative) Urine Leukocyte Esterase Negative /uL (Negative) Urine RBC 2 /hpf (0 - 4) Urine WBC 3 /hpf (0 - 5) Urine Squamous Epithelial Cells Few /hpf (<5) Urine Bacteria Few /hpf (None Seen) Urine Hyaline Casts Few /lpf (0 - 2) Urine Mucus Few (None Seen) Urine Glucose Normal mg/dL (Normal) Lactate Dehydrogenase 163 U/L (120-246) Hepatitis B Surface Antigen Negative (Negative) Hepatitis C Antibody Negative (Negative) Test 04/30/24 00:45 04/29/24 23:25 04/29/24 23:05 04/29/24 11:17 Urine Opiates Screen Neg (NEGATIVE) Urine Fentanyl Screen Pos (NEGATIVE) Urine Barbiturates Screen Neg (NEGATIVE) Urine Phencyclidine Screen Neg (NEGATIVE) Urine Amphetamines Screen Neg (NEGATIVE) Urine Benzodiazepines Screen Neg (NEGATIVE) Urine Cocaine Screen Neg (NEGATIVE) Urine Cannabinoids Screen Neg (NEGATIVE) Lactic Acid Level 1.8 mmol/L (0.4-2.0) Thyroid Stimulating Hormone (TSH) 4.12 uIU/mL (0.55-4.78) Free Thyroxine (T4) Calculated 1.18 ng/dL (0.89-1.76) Plasma/Serum Blood Alcohol < 3.0 mg/dL (<10) Influenza Type A Antigen Negative (Negative) Influenza Type B Antigen Negative (Negative) SARS-CoV-2 Antigen (Rapid) Negative (NEGATIVE) Triglycerides Level 87 mg/dL (< 150) Cholesterol Level 152 mg/dL (< 200) LDL Cholesterol 82 mg/dL (< 100) HDL Cholesterol 65 mg/dL (40-59) Other Laboratory Tests 05/02/24 06:36 Brief Hx & Hospital Course: HPI: This is a 53-year-old female with past medical history of hypothyroidism and morbid obesity, BMI 46.5. presented to the ED with a chief complaint of severe epigastric pain and vomiting for 1 day prior to this admission. The patient stated that epigastric pain started since 7:00 p.m. last night which was continuous, sharp pain 20/10 radiate to the back and associated with nausea and vomiting without any aggravating and relieving factors. She came to the ED of the [facility] 3 days ago with abdominal pain but she left AMA without taking any medical intervention. She also mentioned abdominal pain started intermittently1.5 months ago after started taking semaglutide injection and she received 6 injections. Hospital course: Ultrasound showed cholelithiasis with gallbladder wall thickening and pericholecystic fluid fevers cholecystitis, an echogenic appearance of the liver favors fibrofatty hepatocellular disease likely hepatic steatosis, but the MRI showed findings most compatible with a calculus cholecystitis, gallbladder was seen moderately distended with mural thickening and pericholecystic edema and no gallstones were identified. Common bile duct is borderline dilated measuring 6 mm without a distal obstructive process such as choledocholithiasis or masses. Mid circumferential mural thickening of duodenum likely reactive in nature secondary to inflammatory changes in gallbladder fossa and art hepatis. Duodenitis can not be ruled out no focal lesions or evidence of peptic ulcer disease and mild edema adjacent to pancreatic head likely secondary to inflammatory changes in gallbladder fossa and art hepatis. Pancreatitis unlikely but not entirely excluded was concluded. Patient was sent for a laparoscopic cholecystectomy as the preoperative diagnosis finally were acute cholecystitis and gallstone pancreatitis. Patient recovered well after surgery. Before surgery the patient was able to walk, eat and vital signs were stable CBC and CMP were stable AST ALT were stable for which the patient was safely discharged to home with the following recommendations to follow-up with primary care doctor and surgery within 1-2 weeks. Disposition: Patient stable for discharge to home. Discussed with Dr. Centeno Goals of care discussed with the patient for 31 minutes. Consults/Reason for consult Surgery: possible acalculous cholecystitis Operations or Procedures [place] [id number] Ph: [phone] DIAGNOSTIC IMAGING Diagnostic Imaging Report : [id number] Signed PATIENT: FRANKIE BLANK ACCT: [id number] UNIT: [id number] : 1970 LOC: ER ROOM / BED: / AGE / SEX: 53 / F ADM STATUS: REG ER SERVICE 1327 ORDERING PHYSICIAN: ABHAY STOVER MD PROCEDURE(s): ABPL - CT AB PEL WO CON-NO ORAL OR IV REASON: gallstone pancreatitis ORDER NUMBER(s): [id number], ACCESSION NUMBER(s): [id number] Exam: CT CT AB PEL WO CON-NO ORAL OR IV History: gallstone pancreatitis Comparison Study: None Technique: Multidetector spiral CT of the abdomen and pelvis was performed from lung bases to pubic symphysis. Imaging was performed without IV contrast. Axial, coronal and sagittal multiplanar reformats were obtained from the axial data set by the technologist. Radiation dose : Abdomen/Pelvis: CTDIvol 27 mGy, DLP 1448 mGy*cm. Findings: Evaluation of solid organs is limited due to lack of intravenous contrast use. Lung Bases: No acute or significant lung base finding. Normal heart size. No pleural or pericardial effusion. Liver: The liver is normal in size. No focal lesions. Gallbladder and biliary Tree: Unremarkable Spleen: Unremarkable Pancreas: The pancreas is grossly normal in appearance. Adrenal Glands: Unremarkable Kidneys: Kidneys are grossly normal without calculi or hydronephrosis. Bladder: Grossly unremarkable for degree of distention. Bowel: The stomach is grossly normal in appearance. Small bowel and colon are normal in caliber and distribution. The appendix is not visualized; however, no secondary findings of acute appendicitis identified. Ascites: Absent Lymphadenopathy: No mesenteric, retroperitoneal or periportal lymphadenopathy. Abdominal wall and Mesentery: Veronica mesentery with subcentimeter lymph nodes. Vasculature: The visualized abdominal aorta is normal in size and caliber. Evaluation of abdominal and pelvic vessels is limited due to lack of intravenous contrast. Pelvic Organs: Unremarkable Musculoskeletal: No aggressive focal bony lesions, acute fractures or dislocation. IMPRESSION: 1. No acute abdominal or pelvic findings. No definite evidence of gallstone pancreatitis. If concern persists consider further evaluation with MRI and MRCP of the abdomen with contrast. Nonspecific veronica mesentery with subcentimeter lymph nodes. Radiation optimization: All CT scans at this facility use at least one of these dose optimization techniques: Automated exposure control mA and/or kV adjustment per patient size (includes targeted exams where dose is matched to clinical indication) or iterative reconstruction. HS:Y ATED BY: MATTY HARMON MD DICTATED DATE/TIME: 04/29/241348 SIGNED BY: MATTY HARMON MD SIGNED DATE/TIME: 04/29/241348 CC: [place] [id number] Ph: [phone] DIAGNOSTIC IMAGING Diagnostic Imaging Report : [id number] Signed PATIENT: FRANKIE BLANK ACCT: [id number] UNIT: [id number] : 1970 LOC: [facility] ROOM / BED: [address] [place] [address] AGE / SEX: 53 / F ADM STATUS: ADM IN SERVICE 03 ORDERING PHYSICIAN: BELLA MESSINA RESIDENT PROCEDURE(s): ABDC - ABDOMEN COMPLETE SONOGRAM REASON: Acute pancreatitis ORDER NUMBER(s): [id number], ACCESSION NUMBER(s): [id number] INDICATION: Acute pancreatitis TECHNIQUE: Real-time ultrasonography of the abdomen was performed. COMPARISON: CT 04/29/2024 FINDINGS: The liver appears prominent and echogenic. No intra or extrahepatic biliary dilatation. The common bile duct estimated 0.4 cm. Visualized portions of the pancreas appear unremarkable. Mobile gallstones are noted with mild gallbladder wall thickening to 0.4 cm. Small amount of pericholecystic fluid. The right kidney measures 8.5 cm in length. Left kidney measures 10.8 cm in length. The kidneys appear unremarkable without hydronephrosis. The abdominal aorta, IVC, and spleen appear unremarkable. IMPRESSION: 1. Cholelithiasis with gallbladder wall thickening and pericholecystic fluid favors cholecystitis. 2. Echogenic appearance of the liver favors fibrofatty hepatocellular disease, most commonly hepatic steatosis. ATED BY: ANIYAH KELLY MD DICTATED DATE/TIME: 04/30/24514 SIGNED BY: ANIYAH KELLY MD SIGNED DATE/TIME: 04/30/24514 CC: [place] [id number] Ph: [phone] DIAGNOSTIC IMAGING Diagnostic Imaging Report : [id number] Signed PATIENT: FRANKIE BLANK ACCT: [id number] UNIT: [id number] : 1970 LOC: [facility] ROOM / BED: [address] [place] [address] AGE / SEX: 53 / F ADM STATUS: ADM IN SERVICE 24 ORDERING PHYSICIAN: BELLA MESSINA RESIDENT PROCEDURE(s): MRABWWO - MRI ABDOMEN W AND WO REASON: ORDER NUMBER(s): [id number], ACCESSION NUMBER(s): [id number] Procedure: MRI MRI ABDOMEN W AND WO 04/30/2024 12:54 PM Indication: Acute pancreatitis Comparison Study: Abdominal ultrasound CT scan dated 04/29/2024 Technique: Multi planar, multi sequence abdominal MRI without and with IV contrast was performed. 3D mm signal maximum intensity projection MRCP images were also obtained. FINDINGS: Lower Chest: Unremarkable. Hepatobiliary: Hepatic steatosis. Gallbladder is moderately distended with severe marrow edema and moderate pericholecystic fluid. No intrahepatic ductal dilatation. The common bile duct measures 6 mm in caliber. There is mild mural thickening of CBD wall There is circumferential mural thickening of the adjacent duodenum with moderate surrounding fat stranding. Spleen: Unremarkable. Pancreas: Unremarkable. Adrenal Glands: Unremarkable. tract: The kidneys are normal in size bilaterally without hydronephrosis or nephrolithiasis. GI tract: The stomach is grossly normal in appearance. Mild circumferential mural thickening of duodenum with adjacent mesenteric edema. Mild edema is seen along the superior mesenteric vasculature axis. No evidence of small bowel obstruction. The large bowel is unremarkable. The appendix is not visualized. No inflammatory change is noted in the right lower quadrant. Lymphatics: No mesenteric, retroperitoneal or periportal lymphadenopathy. Vasculature: The abdominal aorta is normal in in caliber. Bones/soft tissues: No acute abnormality. Other: None. IMPRESSION: 1. Findings most compatible with acalculous cholecystitis. Gallbladder is moderately distended with mural thickening and pericholecystic edema. No gallstones are identified. 2. The common bile duct is borderline dilated measuring 6 mm without a distal obstructive process such as choledocholithiasis or mass . CBD and common hepatic duct mural thickening and enhancement noted. Cholangitis can not be ruled out. Recommend clinical correlation. 3. Mild circumferential mural thickening of duodenum likely reactive in nature secondary to inflammatory changes in gallbladder fossa and art hepatis. Duodenitis can not be ruled out. No focal lesion or evidence of peptic ulcer disease. 4. Mild edema adjacent to the pancreatic head likely secondary to inflammatory changes in gallbladder fossa and art hepatis. Pancreatitis unlikely but not entirely excluded. Recommend clinical correlation. 5. Hepatic steatosis. 6. Veronica mesentery related to cholecystitis right upper quadrant inflammatory changes. ATED BY: USHA PAN MD DICTATED DATE/TIME: 04/30/241514 SIGNED BY: USHA PAN MD SIGNED DATE/TIME: 04/30/241514 CC: [place] [id number] Ph: [phone] DIAGNOSTIC IMAGING Diagnostic Imaging Report : [id number] Signed PATIENT: FRANKIE BLANK ACCT: [id number] UNIT: [id number] : 1970 LOC: [facility] ROOM / BED: 0295 / B AGE / SEX: 53 / F ADM STATUS: ADM IN SERVICE 0900 ORDERING PHYSICIAN: BELLA MESSINA RESIDENT PROCEDURE(s): CXRP - CHEST PORTABLE REASON: pre-op ORDER NUMBER(s): [id number], ACCESSION NUMBER(s): [id number] CHEST RADIOGRAPH Indication: pre-op Technique: Single frontal view of the chest was obtained COMPARISON: None FINDINGS: Lines and Tubes: None Lungs: Clear Pleura: No effusion. No pneumothorax. Cardiomediastinal contours: Unremarkable Bones: Unremarkable IMPRESSION: No acute disease. ATED BY: ISAIAH CARVAJAL MD DICTATED DATE/TIME: 05/01/24555 SIGNED BY: ISAIAH CARVAJAL MD SIGNED DATE/TIME: 05/01/24555 CC: Condition at Discharge: Fair Final Diagnosis/Problems List # acute severe abdominal pain likely due to acute cholecystitis and gallstone pancreatitis #Mild edema adjacent to the pancreatic head #gallstone pancreatitis #Acalculous cholecystitis was ruled out # Hyperbillirubinemia with transaminitis # Hypercalcemia likely due to dehydration #Hepatic steatosis # Chronic hypothyroidism #Drugs screen , fentanyl positive #Morbid obesity Discharge Disposition: Home SNF Discharge Will this Physician continue t: No Discharge Instruct/Medications Diet: Cardiac 2g Na,low cholest Activity: No Restrictions, As Tolerated Follow Up/Referral: follow up with PCP within 2 weeks follow up with surgery within 2 weeks Medications: script to pharmacy Discharge Statement: "Patient was advised to return to the ER or call 911 if any headaches, dizziness, shortness of breath, chest pain, abdominal pain, bleeding, fevers, or worsening of medical condition. Patient was counseled about treatment plan, medications, possible side effects, patientverbalized understanding. All questions were answered to the best of my ability. This discharge took greater then 30 minutes in planning, reviewing documentation, counseling the patient, and discussing with other team members." ASSESSMENT ASSESSMENT Assessment Acute cholecystitis, s/p yuriy Date of Service: May 02, 2024 Billing Provider: MANDI AQUINO MD Common Visit Codes: 07373-FXZ/OBS DISCH DAY >30min ADELINA ADRIAN RESIDENT May 02, 2024 22:32 MANDI AQUINO MD May 06, 2024 20:55
== END 2024-05-02 16:30 | disposition home or self-care (01) | DRG 418 ==
LOC: ER 10:59 → OVERFLOW 21:14 → WEST WING 04-30 04:06
PROVIDERS: ADMIT Student in an Organized Health Care Education/Training Program; ATTEND Student in an Organized Health Care Education/Training Program
PROC: 0FT44ZZ Resection of Gallbladder, Percutaneous Endoscopic Approach (ICD-10-PCS; principal; 2024-05-01 16:09)
DX: K85.10 Biliary acute pancreatitis without necrosis or infection (principal); Z68.42 Body mass index [BMI] 45.0-49.9, adult; E80.6 Other disorders of bilirubin metabolism; E83.52 Hypercalcemia; E86.0 Dehydration; E03.9 Hypothyroidism, unspecified; K76.0 Fatty (change of) liver, not elsewhere classified; E66.01 Morbid (severe) obesity due to excess calories; Z82.5 Family history of asthma and other chronic lower respiratory diseases; Z83.3 Family history of diabetes mellitus
CPT/HCPCS: 36415; 71045; 74176; 74183; 76700; 80053; 80061; 80307; 80320; 81001; 83605; 83615; 83690; 84439; 84443; 85025; 85610; 85730; 86803; 86850; 86900; 86901; 87081; 87340; 87426; 87804; 93005; 96374; 96375; 99291; G0378; J1885; J2185; J2250; J2405; J2470; J2704; J3490